=== PATIENT | female | born 1930 | race Caucasian/White ===

== ENCOUNTER 2018-04-19 05:37 | Inpatient (IN) ==
--- OUTSIDE RECORDS SUMMARY | 2018-04-19 05:43 | External Medical Summary | Clinical Summary ---
:1930 Author Organization [facility] Address [address] [place] [address] Care Team Providers Name Role Phone Self, Referral Primary Care Provider Unavailable Source Comments Some departments are not documenting in the electronic medical record. If you do not see the information that you expected, contact Release of Information in the Health Information Management department at [phone] for further assistance in locating additional records.[facility] Social History Tobacco Use Types Packs/Day Years Used Date Never Assessed Sex Assigned at Date Recorded Not on file Plan of Treatment Health Maintenance Due Date Last Done Comments PHYSICAL (COMPREHENSIVE) EXAM 1938 PERTUSSIS VACCINE 1942 TETANUS VACCINE 1948 SHINGLES RECOMBINANT VACCINE (1 of 2) 1981 OSTEOPOROSIS SCREENING 1996 PNEUMONIA (PCV13/PPSV23) VACCINES (1 of 2 - PCV13) 1996 INFLUENZA VACCINE 05/30/2018
--- OUTSIDE RECORDS SUMMARY | 2018-04-19 05:43 | External Medical Summary | Continuity of Care Document ---
:1930 External Reference #:[id number] Author Organization [facility] Allergies Active Description Code Type Severity Reaction Onset Reported/ Identified Relationship Clinical to Patient Status Yes SEE NOTES N/A N/A Yes CARBOCAINE 94048 Drug Moderate RAPID 088 Aller HEART gy BEAT Yes DEXAMETHASON 60635 Drug Moderate SWELLING; E 504 Aller DYSPNEA gy Yes HYDROCODONE 05424 Drug Moderate HIVES 983 Aller gy Yes MORPHINE 05477 Drug Moderate NAUSEA; 418 Aller VOMITING gy Yes PERCOCET 95462 Drug Moderate HIVES 148 Aller gy Yes URISPAS 11757 Drug Moderate HIVES 215 Aller gy Yes CONTRAST 38554 Drug Unknown RASH MEDIA, 316 Aller IODINE gy RELATED Yes IODINE IODIN Drug null N/A E Aller gy Yes PERCOCET PERCO Drug 21887583 N/A 5-325 MG CET Aller TABLET 5-325 gy MG TABLE T Yes ULTRAM 50 MG ULTRA Drug 20120517 N/A TABLET M 50 Aller MG gy TABLE T Yes HYDROCODONE 21780 N/A Shock 10/19/2003 Yes MANDELIC 83068 N/A Skin 10/19/2003 ACID Rashes/Hi ves Yes URIDINE 77813 N/A Skin 10/19/2003 Rashes/Hi ves Yes OXYCODONE 69421 N/A Skin 02/14/2004 HCL Rashes/Hi ves Yes DEXAMETHASON 70017 N/A TONGUE 02/15/2004 E SWELLS Yes URISPAS 98784 Drug N/A N/A 11/18/2009 Aller gy Yes MANDELIC 97083 Drug N/A N/A 11/18/2009 ACID 01728 Aller 0 gy Yes HYDROCODONE- 82583 Drug N/A N/A 11/18/2009 ACETAMINOPHE 10928 Aller N 1 gy Yes PERCOCET 34332 Drug N/A N/A 11/18/2009 53830 Aller 0 gy Yes DECADRON 04542 Drug N/A N/A 11/18/2009 2 Aller gy Yes SHRIMP NOCHK 2 INCREASED 06/17/2011 HEARTRATE Yes CARBOCAINE 36892 TACHYCARD 06/10/2012 IA Yes MORPHINE HCL 60154 3 Severe 11/16/2013 headache Yes Carbocaine Drug Unknown N/A 02/21/2015 Aller gy Yes DECADRON Drug Unknown N/A 02/21/2015 Aller gy Yes MANDELAMINE Drug Unknown N/A 02/21/2015 Aller gy Yes Percocet Drug Unknown N/A 02/21/2015 Aller gy Yes Ultram Drug Unknown N/A 02/21/2015 Aller gy Yes URISPAS Drug Unknown N/A 02/21/2015 Aller gy Yes Anesthetics mepiv AdvRe M RAPID 03/26/2015 - Amide Type acain ac HEARTBEAT e HCl Yes Corticostero dexam Aller S TONGUE 03/26/2015 ids ethas gy SWELLS, (Glucocortic one CAN'T oids) BREATHE Yes Methenamine Methe Aller I HIVES 03/26/2015 Salts namin gy e Mande late Yes Opioids - oxyco Aller I HIVES 03/26/2015 Morphine done gy Analogues HCl Yes Opioids - hydro Aller S HIVES/ 03/26/2015 Morphine codon gy SWELLING Analogues e Yes Shellfish Shell Aller Unknown N/A 03/26/2015 Containing fish gy Products Yes ULTRAM 12585 2 Skin 05/14/2016 Rashes/Hi ves Yes URISPAS 14068 Unknown 05/14/2016 Yes acetaminophe Aller M HIVES 05/12/2017 n gy Yes dexamethason Aller S TONGUE 05/12/2017 e gy SWELLS, CAN'T BREATHE Yes Flavoxate flavo Aller I HIVES 05/12/2017 xate gy (FROM URISPAS) Yes hydrocodone Aller S HIVES/ 05/12/2017 gy SWELLING Yes oxycodone Aller M HIVES 05/12/2017 gy Medications Medication Packaging Start Stop Route Dosage Sig Date Date Sublingual 11/05/19 Sublingual 30 ZOLPIDEM TARTRATE 0 16 AT BEDTIME ORAL 11/05/19 ORAL HYDROMORPHONE HCL 0 16 Tablet 11/12/19 150 mg 1 Diflucan 150 mg 4 17 (one) TABLET tablet qD (daily) ORAL Tablet 3 mg melatonin 3 mg 4 take 1 (one) tablet tablet by Oral route at bedtime 11/03/19 226-200-5 1 PreserVision Lutein 5 18 -0.8 (one) by Oral 226 mg-200 unit-5 mg-unit-m route daily mg-0.8 mg capsule g-mg Calcium 11/03/19 500 1 500 With D 500 mg 5 18 mg(1,250m (one) by Oral (1,250 mg)-400 unit g) -400 route daily tablet unit vitamin 11/03/19 1 B complex tablet 5 18 (one) by Oral route daily beta 11/03/19 25,000 1 carotene 25,000 5 18 unit (one) by Oral unit capsule route daily Vitamin Tablet 11/03/19 500 mg C 500 mg tablet 5 18 take 1 (one) Tablet by Oral route daily vitamin 11/03/19 400 unit 1 E 400 unit capsule 5 18 (one) by Oral route daily Tablet 11/03/19 2 mg HYDROmorphone 2 mg 5 18 take 1 (one) tablet Tablet by Oral route daily for 20 days Capsule 05/22/20 100 mg gabapentin 100 mg 5 15 take 1 (one) capsule Capsule by Oral route daily for 90 days 05/22/20 20 mg omeprazole 20 mg 5 15 take 1 (one) capsule,delayed by Oral route release daily for 90 days Tablet 05/22/20 5 mg lisinopril 5 mg 5 15 take 1 (one) tablet Tablet by Oral route daily for 90 days Capsule 11/03/19 300 mg gabapentin 300 mg 5 18 take 1 (one) capsule Capsule by Oral route daily for 90 days 05/22/20 125 mcg 1 Synthroid 125 mcg 5 15 (one) by Oral tablet route daily for 90 days 11/04/19 0.625 1 Premarin 0.625 5 18 mg/gram (one) by mg/gram vaginal Vaginal route cream daily Tablet 11/03/19 10 mg 1 Urecholine 10 mg 5 18 (one) Tablet tablet by Oral route at bedtime for 30 days PRESERVISION AREDS 5 take one by 2 mouth two times a day VITAMIN ORAL ORAL E 6 VITAMIN ORAL ORAL C 6 VITAMIN ORAL ORAL A 6 TYLENOL ORAL 11/15/19 ORAL 40 WITH CODEINE #3 6 16 every 6 hours PRESERVISION/LUTEIN 6 ORAL 11/19/19 ORAL 28 OMEPRAZOLE 6 16 twice daily ORAL ORAL 30 LISINOPRIL 6 daily FISH ORAL ORAL OIL 6 CALCIUM ORAL ORAL 6 BETA ORAL ORAL CAROTENE 6 ASPIRIN ORAL ORAL 30 EC 6 daily ERYTHROMYCIN 6 apply (1CM) by ophthalmic route every evening before bed to left eye. GENTEAL MILD TO MODERATE 6 Use 1drop q2h OD GENTEAL MILD 6 instill 1 drop by ophthalmic route every day SODIUM SYR 05/19/20 IVP CHLORIDE 0.9% 10ML 6 17 BID&0900,2100 FLUSH SYRINGE TAB 05/19/20 PO LEVOTHYROXINE 25 6 17 QD&0900 MCG TABLET TAB 05/19/20 PO LEVOTHYROXINE 100 6 17 QD&0900 MCG TABLET CAP 05/19/20 PO GABAPENTIN 100MG 6 17 QD&0900 CAPSULE ASPIRIN TAB 05/19/20 PO EC 81MG TABLET 6 16 QD&0900 BAG 05/19/20 IV LACTATED RINGERS 6 16 PRE-OP 1000 ML IV SOLN VL 05/19/20 IV MIDAZOLAM 2MG/2ML 6 16 PRE-OP INJ VL 05/19/20 IVP ceFAZolin 1GM VIAL 6 16 PRE-OP AMP 05/19/20 IV fentaNYL 100 6 16 PRE-OP MCG/2ML INJ VL 05/19/20 ID BUPIVACAINE W/ EPI 6 16 ONCE 0.25% INJ [10 ML] SODIUM VL 05/19/20 IVP CHLORIDE PF 0.9% 6 16 ONCE 10ML INJ BAG 05/19/20 IV LACTATED RINGERS 6 16 ONCE 1000 ML IV SOLN SODIUM EA 05/19/20 IRR CHLORIDE 0.9% 6 16 ONCE 1000ML IRRIG SOLN VL 05/19/20 IVP ceFAZolin 1GM VIAL 6 16 ONCE DOS 05/19/20 IVP SUCCINYLCHOLINE 6 16 ONCE 100MG/5ML SYRINGE [COMPOUND] SYR 05/19/20 IVP LIDOCAINE 2% 6 16 ONCE SYRINGE [100MG/5ML] VL 05/19/20 IVP PROPOFOL 6 16 ONCE 200MG/20ML INJ AMP 05/19/20 IV fentaNYL 250 6 16 ONCE MCG/5ML INJ VL 05/19/20 IVP ONDANSETRON 6 16 ONCE 4MG/2ML INJ ML 05/19/20 IV hydroMORPHONE 6 16 ONCE 2MG/1ML INJ BAG 05/19/20 IV LACTATED RINGERS 6 16 ONCE 1000 ML IV SOLN 05/19/20 ID BUPIVACAINE W/ EPI 6 16 ONCE 0.25% INJ [10 ML] SODIUM SYR 05/19/20 IVP CHLORIDE 0.9% 10ML 6 17 PRN FLUSH SYRINGE SODIUM SYR 05/19/20 IVP CHLORIDE 0.9% 5ML 6 17 PRN FLUSH SYRINGE CAP 05/19/20 PO GABAPENTIN 300MG 6 17 HS&2200 CAPSULE ASPIRIN TAB 05/19/20 PO EC 81MG TABLET 6 17 QD&1200 TAB 05/19/20 PO hydroMORPHONE 2MG 6 17 V3USCRH TABLET TAB 05/19/20 PO SIMVASTATIN 20MG 6 17 HS&2200 TABLET CAP 05/19/20 PO OMEPRAZOLE 20MG 6 17 HS&2200 CAPSULE EA 05/19/20 PO *OTC/HERBAL 6 17 ASDIR SUPPLEMENTS ML 05/19/20 IV hydroMORPHONE 6 16 ONCE 2MG/1ML INJ VL 05/19/20 IVP ONDANSETRON 6 16 POST-OP 4MG/2ML INJ ML 05/19/20 IV hydroMORPHONE 6 16 POST-OP 2MG/1ML INJ BAG 05/19/20 IV LACTATED RINGERS 6 16 ONCE 1000 ML IV SOLN BAG 05/19/20 IV LACTATED RINGERS 6 16 POST-OP 1000 ML IV SOLN TAB 05/19/20 PO LORazepam 0.5MG 6 16 ONCE TABLET TAB 05/19/20 PO LORazepam 0.5MG 6 17 Q4HPRN TABLET TAB 05/20/20 PO ACETAMINOPHEN 325MG 6 16 ONCE TABLET TAB 05/20/20 PO ACETAMINOPHEN 325MG 6 16 ONCE TABLET TAB 05/20/20 PO LORazepam 0.5MG 6 16 ONCE TABLET TAB 05/20/20 PO ACETAMINOPHEN 325MG 6 16 ONCE TABLET TAB 05/20/20 PO ACETAMINOPHEN 325MG 6 16 Q4HPRN TABLET TAB 05/20/20 PO ACETAMINOPHEN 325MG 6 17 Q4HPRN TABLET IV 1 mg/ml Dilaudid 7 Q10M TOP 50 Voltaren 7 applic/10 QID 0 g PO 2 mg Dilaudid 7 PO 10 mg Prilosec 7 PO 5 mg Prinivil 7 DAILY PO 25 mcg Synthroid 7 DAILY PO 100 mg Neurontin 7 TID Zocor PO 10 mg 7 QAM PO 99 mg Potassium 8 DAILY PO 1 each Preservision Lutein 8 Softgel Vitamin PO 1,000 E 8 unit DAILY PO 250 mg Magnesium 8 DAILY Calcium PO 1 each 600-Vit D3 200 8 DAILY Tablet PO 10 mg Prilosec 8 Low PO 81 mg Dose Aspirin EC 8 DAILY Fish PO 1 each Oil 1,200 mg Fish 8 Oil Ferrous PO 325 mg Sulfate 8 DAILY PO 125 mcg Synthroid 8 DAILY Zocor PO 10 mg 8 QAM Evista PO 60 mg 8 DAILY Tablet 11/04/19 2 mg Dilaudid 2 mg 8 18 take 1 (one) tablet Tablet by Oral route three times per day Tylenol Packet 11/04/19 500 mg Extra Strength 500 8 18 take 1 (one) mg tablet Tablet by Oral route daily as needed Bottle 11/04/19 0.12 % 1 chlorhexidine 8 18 (one) daily gluconate 0.12 % mouthwash Tablet 60 mg raloxifene 60 mg 8 take 1 (one) tablet Tablet by Oral route daily Blister 40 mg simvastatin 40 mg 8 take 1 (one) tablet Tablet by Oral route daily Tablet 0.5 mg bumetanide 0.5 mg 8 take 1 (one) tablet Tablet by Oral route daily Tablet 11/04/19 5 mg zolpidem 5 mg 8 18 take 1 (one) tablet Tablet by Oral route daily Fish Blister 11/04/19 1,000 mg 1 Oil 1,000 mg (120 8 18 (120 (one) by Oral mg-180 mg) capsule mg-180 route daily mg) Capsule 11/04/19 226 1 PreserVision Lutein 8 18 mg-200 (one) by Oral 226 mg-200 unit-5 unit -5 route daily mg-0.8 mg capsule mg-0.8 mg Tablet 11/04/19 200 mg magnesium 200 mg 8 18 take 1 (one) tablet Tablet by Oral route daily Calcium Tablet 11/04/19 500 1 500 + D 500 mg 8 18 mg(1,250m (one) by Oral (1,250 mg)-200 unit g) -200 route daily tablet unit vitamin Capsule 11/04/19 1,000 1 E (dl, acetate) 8 18 unit (one) by Oral 1,000 unit capsule route daily iron Blister 11/04/19 325 mg 1 325 mg (65 mg iron) 8 18 (65 mg (one) by Oral tablet iron) route daily beta Capsule 11/04/19 25,000 1 carotene 25,000 8 18 unit (one) by Oral unit capsule route daily Vitamin Tablet 11/04/19 500 mg C 500 mg tablet 8 18 take 1 (one) Tablet by Oral route daily Tablet 11/04/19 10 mEq 1 potassium chloride 8 18 (one) by Oral ER 10 mEq route daily tablet,extended release aspirin Tablet 11/04/19 81 mg 81 mg 8 18 take 1 (one) tablet,delayed by Oral route release daily Elmiron Capsule 12/08/19 100 mg 100 mg capsule 8 18 take 1 (one) Capsule by Oral route three times per day Tablet 12/08/19 25 mg hydrOXYzine HCl 25 8 18 take 1 (one) mg tablet Tablet by Oral route at bedtime PO 2 mg Dilaudid 8 Q6H Calcium PO 1 each 600-Vit D3 200 8 BID Tablet PO 88 mcg Synthroid 8 DAILY Drisdol PO 50,000 8 unit DAILY Problems Date Dx Attending Type Code Diagnosis Diagnosed By Coded 06/13/2013 F 723.1 06/13/2013 F 922.1 06/13/2013 F 959.4 06/13/2013 F E000.9 06/13/2013 F E815.9 06/13/2013 F E849.5 01/29/2016 W H35.32 Exudative age-related macular degeneration 01/29/2016 W H35.81 Retinal edema 01/31/2016 AMY MATTHEW M961 Postlaminectomy syndrome, not elsewhere classified 01/31/2016 AMY MATTHEW Z451 Encounter for adjustment and management of infusion pump 02/26/2016 W H35.32 Exudative age-related macular degeneration 02/26/2016 W H35.81 Retinal edema 02/28/2016 W H35.32 Exudative age-related macular degeneration 02/28/2016 W H35.81 Retinal edema 03/03/2016 AMY MATTHEW M961 Postlaminectomy syndrome, not elsewhere classified 03/03/2016 AMY MATTHEW Z451 Encounter for adjustment and management of infusion pump 03/12/2016 W H35.32 Exudative age-related macular degeneration 03/12/2016 W H35.81 Retinal edema 03/13/2016 W H35.32 Exudative age-related macular degeneration 03/13/2016 W H35.81 Retinal edema 03/16/2016 W H35.32 Exudative age-related macular degeneration 03/16/2016 W H35.81 Retinal edema 03/16/2016 W S05.00XA Corneal abrasion without FB of eye, initial encounter 03/17/2016 W H35.32 Exudative age-related macular degeneration 03/17/2016 W H35.81 Retinal edema 03/17/2016 W S05.00XA Corneal abrasion without FB of eye, initial encounter 04/03/2016 AMY MATTHEW M961 Postlaminectomy syndrome, not elsewhere classified 04/03/2016 AMY MATTHEW Z451 Encounter for adjustment and management of infusion pump 05/01/2016 W H35.32 Exudative age-related macular degeneration 05/01/2016 W H35.341 Macular cyst, hole, or pseudohole, right eye 05/01/2016 W H35.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, bilateral 05/01/2016 W H35.371 Puckering of macula, right eye 05/01/2016 W H35.81 Retinal edema 05/01/2016 W H43.393 Other vitreous opacities, bilateral 05/01/2016 W H43.813 PVD, bilateral 05/05/2016 AMY MATTHEW M961 Postlaminectomy syndrome, not elsewhere classified 05/05/2016 AMY MATTHEW Z451 Encounter for adjustment and management of infusion pump 05/11/2016 W H35.32 Exudative age-related macular degeneration 05/11/2016 W H35.341 Macular cyst, hole, or pseudohole, right eye 05/11/2016 W H35.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, bilateral 05/11/2016 W H35.371 Puckering of macula, right eye 05/11/2016 W H35.81 Retinal edema 05/11/2016 W H43.393 Other vitreous opacities, bilateral 05/11/2016 W H43.813 PVD, bilateral 05/20/2016 Kendy, T85.112A Breakdown (mechanical) Glenn Sharma of implanted electronic D neurostimulator of spinal cord electrode (lead), initial encounter 05/20/2016 JIMI CESAR DF E03.9 Hypothyroidism, unspecified 05/20/2016 AIN, JIMI DF G47.30 Sleep apnea, unspecified 05/20/2016 AIN, JIMI DF H35.30 Unspecified macular degeneration 05/20/2016 TALI, JIMI DF K21.9 Gastro-esophageal reflux disease without 05/20/2016 AIEna, JIMI DF M96.1 Postlaminectomy syndrome, not elsewhere 05/29/2016 JIMI HASSAN DF M54.17 Radiculopathy, lumbosacral region 06/01/2016 Kendy M54.5 Low back pain Collins Lrary 06/05/2016 AMY MATTHEW M961 Postlaminectomy syndrome, not elsewhere classified 06/05/2016 AMY MATTHEW Z451 Encounter for adjustment and management of infusion pump 06/22/2016 W 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, left eye, with active choroidal neovascularization 06/22/2016 W H35.3231 Exudative age-related macular degeneration, bilateral, with active choroidal neovascularization 06/22/2016 W H35.81 Retinal edema 06/26/2016 W H35.3231 Exudative age-related macular degeneration, bilateral, with active choroidal neovascularization 06/26/2016 W H35.81 Retinal edema 07/07/2016 AMY MATTHEW M961 Postlaminectomy syndrome, not elsewhere classified 07/07/2016 AMY MATTHEW Z451 Encounter for adjustment and management of infusion pump 07/21/2016 W H35.3231 Exudative age-related macular degeneration, bilateral, with active choroidal neovascularization 07/21/2016 W H52.4 Presbyopia 07/27/2016 W H35.3231 Exudative age-related macular degeneration, bilateral, with active choroidal neovascularization 07/27/2016 W H52.4 Presbyopia 08/04/2016 AMY MATTHEW M961 Postlaminectomy syndrome, not elsewhere classified 08/04/2016 AMY MATTHEW Z451 Encounter for adjustment and management of infusion pump 09/04/2016 W H35.3231 Exudative age-related macular degeneration, bilateral, with active choroidal neovascularization 09/04/2016 W H35.341 Macular cyst, hole, or pseudohole, right eye 09/04/2016 W H35.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, bilateral 09/04/2016 W H35.371 Puckering of macula, right eye 09/04/2016 W H35.81 Retinal edema 09/04/2016 W H43.393 Other vitreous opacities, bilateral 09/04/2016 W H43.813 PVD, bilateral 09/07/2016 W H35.3231 Exudative age-related macular degeneration, bilateral, with active choroidal neovascularization 09/07/2016 W H35.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, bilateral 09/07/2016 W H35.371 Puckering of macula, right eye 09/07/2016 W H35.81 Retinal edema 09/07/2016 W H43.393 Other vitreous opacities, bilateral 09/07/2016 W H43.813 PVD, bilateral 10/16/2016 W H35.3231 Exudative age-related macular degeneration, bilateral, with active choroidal neovascularization 10/16/2016 W H35.81 Retinal edema 10/20/2016 W H35.3231 Exudative age-related macular degeneration, bilateral, with active choroidal neovascularization 10/20/2016 W H35.81 Retinal edema 10/20/2016 TAD Jacob, L82.1 Other seborrheic Amish, NANCY A keratosis Lina Pope 10/20/2016 TAD Jacob, Z71.89 Other specified Curl, NANCY A counseling Lina Pope 10/20/2016 TAD Jacob, 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, 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 11/14/2016 Grundmeyer, M25.551 PAIN IN RIGHT HIP Grundmeyer, Collins Collins 11/14/2016 Grundmeyer, M25.552 PAIN IN LEFT HIP Grundmeyer, Collins Collins 11/14/2016 Grundmeyer, M54.5 LOW BACK PAIN Grundmeyer, Collins Collins 12/03/2016 F M18.12 Unilateral primary osteoarthritis of first carpometacarpal joint, left hand 12/03/2016 F M79.642 Pain in left hand 12/07/2016 W H35.3231 Exudative age-related macular degeneration, bilateral, with active choroidal neovascularization 12/07/2016 W H35.81 Retinal edema 12/08/2016 F M79.674 Pain in right toe(s) 12/17/2016 W H35.3231 Exudative age-related macular degeneration, bilateral, with active choroidal neovascularization 12/17/2016 W H35.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, bilateral 12/17/2016 W H35.371 Puckering of macula, right eye 12/17/2016 W H35.81 Retinal edema 12/17/2016 W H43.393 Other vitreous opacities, bilateral 12/17/2016 W H43.813 PVD, bilateral 12/25/2016 W H35.3231 Exudative age-related macular degeneration, bilateral, with active choroidal neovascularization 12/25/2016 W H35.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, bilateral 12/25/2016 W H35.371 Puckering of macula, right eye 12/25/2016 W H35.81 Retinal edema 12/25/2016 W H43.393 Other vitreous opacities, bilateral 12/25/2016 W H43.813 PVD, bilateral 01/20/2017 JOSE R NASH R30.0 Dysuria SUSANA HAMMER, AMENA F 01/20/2017 JOSE R NASH R35.0 Frequency of SUSANA HAMMER, micturition AMENA F 01/20/2017 JOSE R NASH R39.11 Hesitancy of SUSANA HAMMER, micturition AMENA F 02/24/2017 W H35.3231 Exudative age-related macular degeneration, bilateral, with active choroidal neovascularization 02/24/2017 W H35.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, bilateral 02/24/2017 W H35.371 Puckering of macula, right eye 02/24/2017 W H35.81 Retinal edema 02/24/2017 W H43.393 Other vitreous opacities, bilateral 02/24/2017 W H43.813 PVD, bilateral 02/25/2017 W H35.3231 Exudative age-related macular degeneration, bilateral, with active choroidal neovascularization 02/25/2017 W H35.81 Retinal edema 03/03/2017 TAD Jacob, L08.9 Local infection of the Curl, NANCY Kwok skin and subcutaneous Lina M tissue, unspecified 03/04/2017 W H35.3231 Exudative age-related macular degeneration, bilateral, with active choroidal neovascularization 03/04/2017 W H35.81 Retinal edema 03/25/2017 W H35.3231 Exudative age-related macular degeneration, bilateral, with active choroidal neovascularization 03/25/2017 W H35.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, bilateral 03/25/2017 W H35.371 Puckering of macula, right eye 03/25/2017 W H35.81 Retinal edema 03/25/2017 W H43.393 Other vitreous opacities, bilateral 03/25/2017 W H43.813 PVD, bilateral 03/26/2017 TAD Jacob, L08.9 Local infection of the Curl, NANCY A skin and subcutaneous Lina M tissue, unspecified 04/05/2017 TAD Jacob, A 438.89 OTH LE CV DISEASE CHRISTOPHER A 04/27/2017 F 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, right ankle and foot 04/27/2017 F M79.674 Pain in right toe(s) 05/20/2017 TAD Jacob, A 438.89 OTH LE CV DISEASE CHRISTOPHER A 05/20/2017 TAD Jacob, A 438.89 OTH LE CV DISEASE CHRISTOPHER A 05/24/2017 W H35.3231 Exudative age-related macular degeneration, bilateral, with active choroidal neovascularization 05/24/2017 W H35.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, bilateral 05/24/2017 W H35.371 Puckering of macula, right eye 05/24/2017 W H35.81 Retinal edema 05/24/2017 W H43.393 Other vitreous opacities, bilateral 05/24/2017 W H43.813 PVD, bilateral 05/25/2017 W H35.3231 Exudative age-related macular degeneration, bilateral, with active choroidal neovascularization 05/25/2017 W H35.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, bilateral 05/25/2017 W H35.371 Puckering of macula, right eye 05/25/2017 W H35.81 Retinal edema 05/25/2017 W H43.393 Other vitreous opacities, bilateral 05/25/2017 W H43.813 PVD, bilateral 06/25/2017 W H35.3231 Exudative age-related macular degeneration, bilateral, with active choroidal neovascularization 06/25/2017 W H35.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, bilateral 06/25/2017 W H35.371 Puckering of macula, right eye 06/25/2017 W H35.81 Retinal edema 06/25/2017 W H43.393 Other vitreous opacities, bilateral 06/25/2017 W H43.813 PVD, bilateral 07/27/2017 W H35.3231 Exudative age-related macular degeneration, bilateral, with active choroidal neovascularization 07/27/2017 W H35.3231 Exudative age-related macular degeneration, bilateral, with active choroidal neovascularization 07/27/2017 W H35.3231 Exudative age-related macular degeneration, bilateral, with active choroidal neovascularization 07/27/2017 W H52.4 Presbyopia 07/27/2017 W H35.3231 Exudative age-related macular degeneration, bilateral, with active choroidal neovascularization 07/27/2017 W H52.4 Presbyopia 07/28/2017 W H35.3231 Exudative age-related macular degeneration, bilateral, with active choroidal neovascularization 07/28/2017 W H52.4 Presbyopia 07/28/2017 W H35.3231 Exudative age-related macular degeneration, bilateral, with active choroidal neovascularization 07/28/2017 W H52.4 Presbyopia 08/12/2017 SAHRA HAMMER, E11.65 Type 2 diabetes COLLEEN BOCANEGRA MD mellitus with COLLEEN A hyperglycemia 08/12/2017 SAHRA HAMMER, Z71.3 Dietary counseling and COLLEEN BOCANEGRA MD surveillance COLLEEN A 08/27/2017 W H35.3231 Exudative age-related macular degeneration, bilateral, with active choroidal neovascularization 08/27/2017 W H35.3231 Exudative age-related macular degeneration, bilateral, with active choroidal neovascularization 08/27/2017 W H35.81 Retinal edema 09/02/2017 SAHRA HAMMER, E11.65 Type 2 diabetes COLLEEN BOCANEGRA MD mellitus with COLLEEN A hyperglycemia 09/02/2017 SAHRA HAMMER, Z71.3 Dietary counseling and COLLEEN BOCANEGRA MD surveillance COLLEEN A 09/06/2017 W H35.3231 Exudative age-related macular degeneration, bilateral, with active choroidal neovascularization 09/06/2017 W H35.81 Retinal edema 09/06/2017 W H35.3231 Exudative age-related macular degeneration, bilateral, with active choroidal neovascularization 09/06/2017 W H35.81 Retinal edema 09/16/2017 SAHRA HAMMER, E11.65 Type 2 diabetes SAHRA HAMMER, COLLEEN A mellitus with COLLEEN A hyperglycemia 09/16/2017 SAHRA HAMMER, Z71.3 Dietary counseling and SAHRA HAMMER, COLLEEN A surveillance COLLEEN A 09/23/2017 SAHRA HAMMER, E11.65 Type 2 diabetes SAHRA HAMMER, COLLEEN A mellitus with COLLEEN A hyperglycemia 09/23/2017 SAHRA HAMMER, Z71.3 Dietary counseling and SAHRA HAMMER, COLLEEN A surveillance COLLEEN A 11/08/2017 NABBOUT, JOSE R N30.10 Interstitial cystitis NABBOUT, (chronic) without JOSE R hematuria 11/08/2017 NABBOUT, JOSE R R30.0 Dysuria NABBOUT, JOSE R 11/08/2017 NABBOUT, JOSE R R35.0 Frequency of NABBOUT, micturition JOSE R 11/25/2017 W H35.3231 Exudative age-related macular degeneration, bilateral, with active choroidal neovascularization 11/25/2017 W H35.3231 Exudative age-related macular degeneration, bilateral, with active choroidal neovascularization 11/25/2017 W H35.81 Retinal edema 11/25/2017 W H35.3231 Exudative age-related macular degeneration, bilateral, with active choroidal neovascularization 11/25/2017 W H35.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, bilateral 11/25/2017 W H35.81 Retinal edema 11/25/2017 W H35.3231 Exudative age-related macular degeneration, bilateral, with active choroidal neovascularization 11/25/2017 W H35.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, bilateral 11/25/2017 W H35.371 Puckering of macula, right eye 11/25/2017 W H35.81 Retinal edema 11/25/2017 W H35.3231 Exudative age-related macular degeneration, bilateral, with active choroidal neovascularization 11/25/2017 W H35.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, bilateral 11/25/2017 W H35.371 Puckering of macula, right eye 11/25/2017 W H35.81 Retinal edema 11/25/2017 W H43.813 PVD, bilateral 11/30/2017 W H35.3231 Exudative age-related macular degeneration, bilateral, with active choroidal neovascularization 11/30/2017 W H35.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, bilateral 11/30/2017 W H35.371 Puckering of macula, right eye 11/30/2017 W H35.81 Retinal edema 11/30/2017 W H43.813 PVD, bilateral 11/30/2017 W H35.3231 Exudative age-related macular degeneration, bilateral, with active choroidal neovascularization 11/30/2017 W H35.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, bilateral 11/30/2017 W H35.371 Puckering of macula, right eye 11/30/2017 W H35.81 Retinal edema 11/30/2017 W H43.813 PVD, bilateral 11/30/2017 W H35.3231 Exudative age-related macular degeneration, bilateral, with active choroidal neovascularization 11/30/2017 W H35.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, bilateral 11/30/2017 W H35.371 Puckering of macula, right eye 11/30/2017 W H35.81 Retinal edema 11/30/2017 W H43.813 PVD, bilateral 11/30/2017 W H35.3231 Exudative age-related macular degeneration, bilateral, with active choroidal neovascularization 11/30/2017 W H35.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, bilateral 11/30/2017 W H35.371 Puckering of macula, right eye 11/30/2017 W H35.81 Retinal edema 11/30/2017 W H43.813 PVD, bilateral 11/30/2017 W H35.3231 Exudative age-related macular degeneration, bilateral, with active choroidal neovascularization 11/30/2017 W H35.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, bilateral 11/30/2017 W H35.371 Puckering of macula, right eye 11/30/2017 W H35.81 Retinal edema 11/30/2017 W H43.813 PVD, bilateral 11/30/2017 W H35.3231 Exudative age-related macular degeneration, bilateral, with active choroidal neovascularization 11/30/2017 W H35.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, bilateral 11/30/2017 W H35.371 Puckering of macula, right eye 11/30/2017 W H35.81 Retinal edema 11/30/2017 W H43.813 PVD, bilateral 12/03/2017 NABBOUT, JOSE R N30.10 Interstitial cystitis NABBOUT, (chronic) without JOSE R hematuria 12/03/2017 NABBOUT, JOSE R R35.0 Frequency of NABBOUT, micturition JOSE R 12/16/2017 W H35.3231 Exudative age-related macular degeneration, bilateral, with active choroidal neovascularization 12/16/2017 W H35.3231 Exudative age-related macular degeneration, bilateral, with active choroidal neovascularization 12/16/2017 W H35.81 Retinal edema 12/16/2017 W H35.3231 Exudative age-related macular degeneration, bilateral, with active choroidal neovascularization 12/16/2017 W H35.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, bilateral 12/16/2017 W H35.81 Retinal edema 12/16/2017 W H35.3231 Exudative age-related macular degeneration, bilateral, with active choroidal neovascularization 12/16/2017 W H35.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, bilateral 12/16/2017 W H35.371 Puckering of macula, right eye 12/16/2017 W H35.81 Retinal edema 12/16/2017 W H35.3231 Exudative age-related macular degeneration, bilateral, with active choroidal neovascularization 12/16/2017 W H35.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, bilateral 12/16/2017 W H35.371 Puckering of macula, right eye 12/16/2017 W H35.81 Retinal edema 12/16/2017 W H43.813 PVD, bilateral 12/17/2017 ATD Jacob, L70.8 Other acne Curl, NANCY Dupree 12/17/2017 TAD Jacob, L72.0 Epidermal cyst Amish, NANCY Dupree 12/17/2017 TAD Jacob, Z85.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, CHRISTADEOLA A other malignant Lina PopeGetachew neoplasm of skin 12/23/2017 W H35.3231 Exudative age-related macular degeneration, bilateral, with active choroidal neovascularization 12/23/2017 W H35.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, bilateral 12/23/2017 W H35.371 Puckering of macula, right eye 12/23/2017 W H35.81 Retinal edema 12/23/2017 W H43.813 PVD, bilateral 12/23/2017 W H35.3231 Exudative age-related macular degeneration, bilateral, with active choroidal neovascularization 12/23/2017 W H35.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, bilateral 12/23/2017 W H35.371 Puckering of macula, right eye 12/23/2017 W H35.81 Retinal edema 12/23/2017 W H43.813 PVD, bilateral 03/17/2018 W H35.3231 Exudative age-related macular degeneration, bilateral, with active choroidal neovascularization 03/17/2018 W H35.3231 Exudative age-related macular degeneration, bilateral, with active choroidal neovascularization 03/17/2018 W H35.81 Retinal edema 03/21/2018 W H35.3231 Exudative age-related macular degeneration, bilateral, with active choroidal neovascularization 03/21/2018 W H35.3231 Exudative age-related macular degeneration, bilateral, with active choroidal neovascularization Procedures Code Description [place] [address] INJECTION EYE 01/22/2016 DRUG 21504 Gdx Oct Post 02/26/2016 Seg Ret 09248 INJECTION EYE 03/12/2016 DRUG 23719 Gdx Oct Post 03/12/2016 Seg Ret J7999 Compounded Drug 03/12/2016 NOC 57008 03/16/2016 OFFICE/OUTPATIENT VISIT, EST 60854 EYE EXAM T 05/01/2016 TREATMENT Removal of JIMI CESAR 05/19/2016 [id number] Neurostimulator Lead from Spi Removal of JIMI CESAR 05/19/2016 [id number] Stimulator Generator from Cornelio 21214 Removal of Glenn Sharma 05/20/2016 spinal neurostimulator electrode plate/paddle(s) [place] [address] Post Operative Collins Larry 06/01/2016 Visit 80145 Removal of [place], Glenn D 06/12/2016 spinal neurostimulator electrode plate/paddle(s) [place] [address] INJECTION EYE 06/22/2016 DRUG 67674 Gdx Oct Post 06/22/2016 Seg Ret 05801 EYE EXAM T 07/21/2016 TREATMENT 09957 REFRACTION 07/21/2016 12810 EYE EXAM T 09/04/2016 TREATMENT 36140 Gdx Oct Post 09/04/2016 Seg Ret 89494 INJECTION EYE 10/16/2016 DRUG 47015 Gdx Oct Post 10/16/2016 Seg Ret C9257 Avastin/ 10/16/2016 Bevacizumab J7999 Compounded Drug 10/16/2016 NOC 79222 Level III Lina Wellington 10/20/2016 established patient office visit 90417 Office Visit Collins Larry 11/14/2016 Expanded 53815 1 Finger 3V Emiliahillary Renzo 12/03/2016 Thumb + [facility] 89662 OFFICE VISIT Collins Larry 12/10/2016 EXPANDED 42627 INJECTION EYE 12/17/2016 DRUG 16628 Gdx Oct Post 12/17/2016 Seg Ret 35271 SPECIAL EYE 12/17/2016 EXAM, INITIAL J7999 Compounded Drug 12/17/2016 NOC 00479 OFFICE OR OTHER AMENA MEZA MD 01/20/2017 OUTPATIENT VISIT FOR THE EVALUATION AND MANAGEMENT OF ANESTABLISHED [place] R 78707 Level III Lina Wellington 01/27/2017 established patient office visit 47143 OFFICE OR OTHER AMENA MEZA MD 02/16/2017 OUTPATIENT VISIT FOR THE EVALUATION AND MANAGEMENT OF ANESTABLISHED PATIENT, WHICH R 11634 Gdx Oct Post 02/25/2017 Seg Ret 95123 Level IV Lina Wellington 03/03/2017 established patient office visit 09479 Level II Lina Wellington 03/26/2017 established patient office visit 51136 Level IV Lina Wellington 03/26/2017 established patient office visit [facility] No Show feeTERESA KAREN L 04/05/2017 clinic 38849 Level II Lina Wellington 04/22/2017 established patient office visit 18434 Foot 3V WB ReidIsabela angel 04/27/2017 AP/Obl/Lat [facility] No Show fee, FARZANEH MOORE 05/20/2017 clinic 16485 INJECTION EYE 05/24/2017 DRUG 70850 EYE EXAM 05/24/2017 ESTABLISHED PAT 29186 Gdx Oct Post 05/24/2017 Seg Ret 31663 SPECIAL EYE 05/24/2017 EXAM, SUBSEQUENT J7999 Compounded Drug 05/24/2017 NOC 94624 EYE EXAM 07/27/2017 ESTABLISHED PAT 97794 Gdx Oct Post 08/27/2017 Seg Ret 68588 MEASUREMENT OF NABBOUT, [facility] 11/08/2017 POST-VOIDING RESIDUAL URINE AND/OR BLADDER CAPACITY BYULTRASOUND, NON-IMAGING 42780 OFFICE OR OTHER NABBOUT, [facility] 11/08/2017 OUTPATIENT VISIT FOR THE EVALUATION AND MANAGEMENT OF ANESTABLISHED PATIENT, WHICH R 88743 EYE EXAM 11/25/2017 ESTABLISHED PAT 46763 Gdx Oct Post 11/25/2017 Seg Ret 92258 MEASUREMENT OF NABBOUT, [facility] 12/03/2017 POST-VOIDING RESIDUAL URINE AND/OR BLADDER CAPACITY BYULTRASOUND, NON-IMAGING 89611 OFFICE OR OTHER NABBOUT, [facility] 12/03/2017 OUTPATIENT VISIT FOR THE EVALUATION AND MANAGEMENT OF ANESTABLISHED PATIENT, WHICH R 75464 OFFICE OR OTHER NABBOUT, [facility] 12/03/2017 OUTPATIENT VISIT FOR THE EVALUATION AND MANAGEMENT OF ANESTABLISHED PATIENT, WHICH R 39740 EYE EXAM 12/16/2017 ESTABLISHED PAT 03813 Level III Lina Wellington 12/17/2017 established patient office visit 99037 OFFICE OR OTHER NABBOUT, [facility] 01/07/2018 OUTPATIENT VISIT FOR THE EVALUATION AND MANAGEMENT OF ANESTABLISHED PATIENT, WHICH R 27260 Level III Lina Wellington 01/18/2018 established patient office visit 80185 INJECTION EYE 03/17/2018 DRUG 03768 Gdx Oct Post 03/17/2018 Seg Ret J7999 Compounded Drug 03/17/2018 NOC Results Test Result Range L750.2985 - 10/20/17 13:37 Cortisol AM, Serum - AMS 12 ug/dL 3-20 L750.7925 - 10/20/17 13:37 PTH Parathyroid Hormone Intact 44.1 pg/mL 6.6-88.9 L749.2000 - 01/18/18 10:20 NA - Sodium - AMS 140 mEq/L 135-144 Potassium - AMS 4.6 mEq/L 3.5-5.2 Chloride- AMS 105 mEq/L 99-111 CO2 - Carbon Dioxide-AMS 31 mEq/L 22-31 Anion Gap - AMS 4 mEq/L 3-20 BUN - Blood Urea Nitrogen -AMS 22 mg/dL 10-20 Creatinine - AMS 1.02 mg/dL 0.57-1.11 Glomerular Filtration Rate-AMS 51 mL/min >60 Glucose - AMS 110 mg/dL 70-99 Calcium - AMS 9.2 mg/dL 8.4-10.2 Bilirubin,Total - AMS 0.9 mg/dL 0.2-1.2 Alkaline Phosphatase - AMS 78 U/L 40-150 AST - Aspartate Amino Transfer 19 U/L 5-34 ALT - AMS 20 U/L 0-55 TP - Total Protein - AMS 5.8 g/dL 6.0-7.6 Albumin Level - AMS 3.8 g/dL 3.4-4.8 Globulin - AMS 2.0 g/dL 1.8-4.0 Encounters ACCT Visit Discharge Status Pt. Provider Facility Loc./Unit Complaint No. Date/Time Type 73804 05/29/2016 05/29/2016 DIS Matias HASSAN [facility] Radiculopat 12:04:00 12:04:00 ent [facility] [address] 05/19/2016 05/20/2016 DIS JIMI [place] INPT NO 10:21:00 10:57:00 ent [facility] RADICULOPAT HY, DORSALGIA [id number] 03/07/2018 03/07/2018 DIS Matias ZENG MD, [facility] Rt Hip Pain 17266 11:17:00 13:41:00 ent [facility] [id number] 02/14/2018 02/14/2018 ALFONSO ChanT N18.3 92303 10:00:00 00:00:00 ent Shahana Richey APRN [id number] 01/11/2018 01/31/2018 SEVERIANO BOCANEGRA MD, MNT E11.9 73538 14:31:00 00:00:00 ent COLLEEN Kwok [id number] 01/18/2018 01/18/2018 DIS Matias HATCH MD, Diabetes & OSTEOPOROS 30414 09:48:00 10:34:00 ent ANA MARÍA Pope Endocrinolog y [id number] 12/31/2017 12/31/2017 DIS Matias Ventura MD M16.11 12464 12:58:00 12:59:00 ent [facility] primary osteoarthri tis, right hi [id number] 11/29/2017 11/29/2017 DIS Matias Ventura MD Ortho Rt Hip 85796 14:17:00 23:59:00 ent [facility] Injection [facility] [id number] 08/12/2017 11/04/2017 DIS Outbraulio BOCANEGRA MD, DMEDU DM EDU 53336 15:15:00 00:00:00 ent COLLEEN Kwok E11.9 [id number] 10/20/2017 10/20/2017 CLS Matias HATCH MD, Diabetes & Osteoporosi 10066 08:48:00 23:59:59 ent ANA MARÍA Pope Endocrinolog s y [id number] 08/19/2017 08/19/2017 DIS Matias Rodas Z78.0 31774 13:06:00 13:07:00 [facility] [id number] 05/12/2017 05/12/2017 CLS Matias Ventura MD Ortho Rt Knee 09239 12:26:00 23:59:59 ent [facility] pain Medicine [id number] 06/25/2016 06/25/2016 CLS Matias Cook YORDY 54820 10:55:00 23:59:59 [facility] [id number] 04/19/2018 ROSALINA ZENG MD, SHAE Primary 89416 10:55:00 t [facility] arthritis right hip [id number] 04/05/2018 Documen 44658 11:30:00 t Registr ation [id number] 07/03/2016 Documen 40760 18:38:00 t Registr ation [id number] 09/25/2016 09/25/2016 CLS Outpati 10096 15:22:16 23:59:59 ent [id number] 01/06/2018 01/06/2018 CLS Outpati TAD 86220 11:22:01 23:59:59 NANCY levin M.D. [id number] 08/04/2016 08/04/2016 DIS OutMaxx Larson 001 3 01:07:00 12:11:00 ent [facility]Y [facility] [id number] 07/07/2016 07/07/2016 DIS OutMaxx Larson 8 01:37:00 12:37:00 ent [facility] [id number] 06/05/2016 06/05/2016 DIS Maxx Blanco 001 0 01:12:00 10:07:00 ent [facility] [id number] 05/05/2016 05/05/2016 DIS OutMaxx Larson 0 00:38:00 12:23:00 ent [facility] [id number] 04/03/2016 04/03/2016 DIS Maxx Blanco 4 00:10:00 10:19:00 ent [facility] [id number] 03/03/2016 03/03/2016 DIS Maxx Blanco 4 00:47:00 12:31:00 ent AMY [facility] [id number] 01/31/2016 01/31/2016 DIS Maxx Blanco 0 00:31:00 09:57:00 ent AMY [facility] [id number] 12/31/2015 Documen 4 01:40:00 t Registr ation [id number] 11/28/2015 11/28/2015 DIS Outpati 08:11:31 08:11:32 ent [id number] 12/31/2017 12/31/2017 CLS Outpati CHARITY, 1 13:32:17 23:59:59 ent JOSE R [id number] 04/27/2017 Documen 83 00:00:00 t Registr ation [id number]- 12/03/2016 Documen 5983 00:00:00 t Registr ation [id number] 04/08/2018 04/08/2018 CLS Outpati Kendy, 12:44:10 23:59:59 ent Collins [id number] 03/17/2018 Documen 14:40:00 t Registr ation [id number] 12/16/2017 Documen 13:25:00 t Registr ation [id number] 11/25/2017 Documen 14:25:00 t Registr ation [id number] 08/27/2017 Documen 13:00:00 t Registr ation [id number] 07/27/2017 Documen 11:47:22 t Registr ation [id number] 07/27/2017 Documen 11:00:00 t Registr ation [id number] 05/24/2017 Documen 08:55:00 t Registr ation [id number] 02/25/2017 Documen 13:05:00 t Registr ation [id number] 12/17/2016 Documen 14:20:00 t Registr ation [id number] 10/16/2016 Documen 13:00:00 t Registr ation [id number] 09/04/2016 Documen 10:20:00 t Registr ation [id number] 07/21/2016 Documen 10:40:00 t Registr ation [id number] 06/22/2016 Documen 09:30:00 t Registr ation [id number] 05/01/2016 Documen 10:00:00 t Registr ation [id number] 03/16/2016 Documen 13:20:00 t Registr ation [id number] 03/12/2016 Documen 12:10:00 t Registr ation [id number] 02/26/2016 Documen 14:55:00 t Registr ation [id number] 01/22/2016 Documen 15:35:00 t Registr ation [id number] 06/06/2013 Documen [id number] 20:50:00 t Registr ation
[2018-04-19 05:53] VITALS: BMI 29.5
[2018-04-19] MEDS ORDERED: ONDANSETRON 4 MG/2 ML INJECTION IVP ONE (06:00)
[2018-04-19] MEDS ORDERED: FAMOTIDINE PB 20 MG/50 ML BAG IV ONE (06:00)
[2018-04-19] MEDS ORDERED: LIDOCAINE 1% (10mg/ml) 2mL INJ PF SDV ID ONE (06:00)
[2018-04-19] MEDS ORDERED: METOCLOPRAMIDE 10mg/2ml INJECTION IVP ONE (06:00)
[2018-04-19] MEDS ORDERED: TRANEXAMIC ACID 1,000 MG in NS 100 ML IV ONE ×2 (06:00→07:00)
[2018-04-19] MEDS: LR 1,000 ML IV SCH ×2 (06:30→08:30)
[2018-04-19] MEDS: NOZIN NASAL SWAB NAS SCH ×5 (06:36→22:01)
[2018-04-19] MEDS ORDERED: CEFAZOLIN 1 G INJECTION IVP ONE (06:40)
--- NOTE | 2018-04-19 06:48 | Anesthesia Preoperative Report ---
Anesthesia Preoperative Record - Date and Time Date: 04/19/18 Preoperative Diagnosis: Primary arthritis right hip Proposed Procedure: Right Total hip NPO Since Date: 04/19/18 NPO Since Time: 00:00 Allergies/Adverse Reactions: Allergies Allergy/AdvReac Type Severity Reaction Status Date / Time dexamethasone Allergy Severe TONGUE Verified 03/07/18 11:25 SWELLS, CAN'T BREATHE hydrocodone Allergy Severe HIVES/ Verified 03/07/18 11:25 SWELLING flavoxate Allergy Intermediate HIVES Verified 03/07/18 11:25 (FROM URISPAS) acetaminophen Allergy Mild HIVES Verified 03/07/18 11:25 oxycodone Allergy Mild HIVES Verified 03/07/18 11:25 tramadol [From Ultram] Allergy Unknown Hives Verified 04/08/18 09:41 dexamethasone sod phosphate Allergy Severe TONGUE Uncoded 03/07/18 11:25 SWELLS, CAN'T BREATHE Methenamine Mandelate Allergy Intermediate HIVES Uncoded 03/07/18 11:25 oxycodone HCl Allergy Intermediate HIVES Uncoded 03/07/18 11:25 Shellfish Allergy Unknown Uncoded 03/07/18 11:25 mepivacaine HCl AdvReac Mild RAPID Uncoded 03/07/18 11:25 HEARTBEAT - Vital Signs Vital Signs: Temperature 97.7 F 04/19/18 05:50 Pulse Rate 58 L 04/19/18 06:29 Respiratory Rate 16 04/19/18 05:50 Blood Pressure 140/61 H 04/19/18 05:50 Pulse Oximetry 95 04/19/18 05:50 Height and Weight: Height 1.47 m Weight 64.1 kg Body Mass Index 29.5 - Medications Inpatient Medications: Current Medications Cefazolin Sodium (Kefzol 1 Gm Vial) 1 g IVP PREOP ONE Stop: 04/19/18 06:41 Lactated Ringer's (Lactated Ringers) 1,000 mls @ 50 mls/hr IV .Q20H PETERSON Last Admin: 04/19/18 06:30 Dose: 50 mls/hr Epinephrine HCl 0.25 mg/Bupivacaine HCl 30 ml/Ketorolac Tromethamine 60 mg/ Sodium Chloride 62.25 mls @ 1 mls/hr OPSITE INTRAOP ONE; Protocol Stop: 04/21/18 22:14 Tranexamic Acid 1,000 mg/ (Sodium Chloride) 110 mls @ 660 mls/hr IV INTRAOP ONE Stop: 04/19/18 07:09 Isopropyl Alcohol (Nozin Nasal Swab) 1 each JUNITO Q1M PETERSON Stop: 04/19/18 15:48 Last Admin: 04/19/18 06:45 Dose: 1 each Sodium Chloride (Iv Flush) 10 - 80 ml IV PRN PRN PRN Reason: Flushing Home Medications: Home Medications Medication Instructions Recorded Confirmed Type Neurontin (gabapentin) 100 mg 100 mg PO TID 05/12/17 04/19/18 History capsule lisinopril 5 mg tablet 5 mg PO WS tab 05/12/17 04/19/18 History Prilosec (Omeprazole) 10 mg 20 mg PO HS cap 10/20/17 04/19/18 History capsule,delayed release aspirin 81 mg tablet,delayed 81 mg PO DAILY 10/20/17 04/18/18 History release potassium 99 mg tablet 99 mg PO WS 10/20/17 04/19/18 History raloxifene 60 mg tablet 60 mg PO DAILY #90 tab 10/20/17 04/19/18 Rx hydromorphone 2 mg tablet 2 mg PO Q6H PRN 01/18/18 04/19/18 History Calcium Carb/Vitamin D3/Vit K1 1 each PO TID 04/08/18 04/19/18 History [Citracal Soft Chew] Cinnamon Bark [Cinnamon] 2,000 mg PO 04/08/18 04/19/18 History Docusate Sodium [Stool Softener] 100 mg PO HS 04/08/18 04/19/18 History Lactobacillus Acidophilus 1 each PO WB 04/08/18 04/19/18 History [Acidophilus] Levothyroxine Tab [Synthroid] 88 mcg PO HS 04/08/18 04/19/18 History Magnesium Oxide [Magnesium] 1 tab PO HS 04/08/18 04/19/18 History Simvastatin [Zocor] 40 mg PO HS 04/08/18 04/19/18 History Vit C/E/Zn/Coppr/Lutein/Zeaxan 1 each PO BID 04/08/18 04/19/18 History [Preservision Areds 2 Softgel] Vitamin B Complex Vit C No.4 150 mg PO WS 04/08/18 04/19/18 History [Super B Complex] Zolpidem Tartrate 5 mg PO HS 04/08/18 04/19/18 History - Medical History Respiratory: Reports: Pneumonia, Sleep Apnea (uses CPAP) Cardiovascular: Reports: Hypertension, High Cholesterol Gastrointestional: Reports: Gastroesophageal Reflux Disease Neuro/Musculoskeletal: Reports: Back Problems, Other (osteoporosis) Renal/Endocrine: Reports: Diabetes Mellitus Type 2, Thyroid Disease Other History: Reports: Anesthesia Reactions (difficult intubation-use pediatric scope; requests spinal if poss), Cancer (skin CA excisions) - Surgical History Neurological Surgeries: Reports: Other (cervical fusion x3; lumbar fusion x5; kyphoplasty; has hardware T12-S1) HEENT Surgeries: Reports: Eye Surgery (charanjit cat ext with IOL), Tonsillectomy Cardiac Surgeries/Treatments: Reports: Cardiac Catheterization Respiratory Surgery/Treatments: Reports: CPAP Use GI Surgery/Treatments: Reports: Appendectomy, Cholecystectomy (open tiki), Colonoscopy Surgery/Treatment: REPORT: Other (cystos) Musculoskeletal Surgery/Tx: Reports: Other (Rt bunionectomy; pain pump, pain stimulator) Reproductive Surgery/Treatment: Reports: Hysterectomy Anesthesia Reactions: None Hx Family Anesthesia Reaction: No History of Motion Sickness: No - Social History Smoking Status: Former smoker Hx Chewing Tobacco Use: No Second Hand Exposure: No Substance Use Type: does not use Alcohol Intake Frequency: does not drink - Pertinent Findings Laboratory: CBC and BMP 04/19/18 06:07 04/19/18 06:07 BMP 04/19/18 06:07 Sodium 139 Potassium 4.6 Chloride 99 Carbon Dioxide 30 BUN 26.0 H Creatinine 0.8 Glucose 101 Calcium 9.4 EKG: Sinus Bradycardia - Physical Exam Respiratory Exam: Present: lungs clear Cardiovascular Exam: Present: regular rate and rhythm - Airway Assessment Mallampati Score: II TMD: 3 Fingerbreadths Neck Extension: poor Overall Assessment: may be difficult mask vent, may be difficult intubation - ASA ASA Score: 3 - Plan Anesthesia: Neuroaxial Regional/Trunk Block: Spinal - Discussion Discussion: Discussed risks/options/alternatives of anesthesia and questions answered. Patient consents. Nursing pain assessment noted. Present for Discussion: spouse Attestation Statement: Prior to the delivery of any anesthetic medication, I examined the patient, developed the plan, obtained the patient's consent and discussed the risk and benefits of the procedure with the patient/guardian. - Additional Information Seen by Anesthesia: Yes
[2018-04-19] MEDS ORDERED: MIDAZOLAM 2mg/2ml INJECTION ONE (07:06)
[2018-04-19] MEDS ORDERED: PROPOFOL 500 MG/50 ML VIAL ONE (07:07)
[2018-04-19] MEDS ORDERED: BUPIVACAINE 0.75%/DEXTROSE 8.5% SPINAL 2 ML AMPULE IJ ONE (07:07)
[2018-04-19] MEDS ORDERED: LIDOCAINE 2% (100mg/5mL) 5ml PF SDV ONE (07:07)
[2018-04-19] MEDS ORDERED: VANCOMYCIN 1,000 MG INJECTION ONE (07:19)
[2018-04-19] MEDS ORDERED: EPINEPHrine PF 0.25 MG, BUPIVACAINE 0.25% PF 30 ML, KETOROLAC INJ 60 MG in NS 30 ML OPSITE ONE (08:00)
[2018-04-19] MEDS ORDERED: VANCOMYCIN 1,000 MG INJECTION IAR ONE (08:21)
[2018-04-19] MEDS ORDERED: PROPOFOL 20 ML ONE (08:23)
[2018-04-19] MEDS ORDERED: EPHEDRINE 50mg/ml INJECTION ONE (08:32)
--- NOTE | 2018-04-19 09:02 | Operative Note ---
- Procedure Preoperative Diagnosis: Right hip primary degenerative joint disease Postoperative Diagnosis: Same as preoperative diagnosis. Surgeon: Blu Coy MD Central Service Technician: Jannie Stevens Complications: None. Anesthesia: Spinal. Estimated Blood Loss: See Anesthesia Record. Fluids: Please see Anesthesia Record. Description of Procedure: Mrs. Patel and her right hip were identified and marked in the preoperative holding area. She was brought back to the operating suite and spinal anesthetic was administered. She was then placed in a lateral decubitus position with her right hip up. The right lower extremity was prepped and draped in my normal sterile fashion. Timeout was performed. The [employer] robotic arm was used to assist with the surgery. She had small anatomy. A pelvic array was placed into the iliac crest through three small incisions. A direct superior approach was utilized. An approximately 11 cm incision was made in the skin and dissection carried down to the muscle fascia which was then split in line with skin incision. The short external rotators were identified and tagged and detached. A capsulotomy was performed and the hip dislocated. A femoral neck osteotomy was performed at the pre-templated level measuring down from the femoral head 47mm. The head was removed and acetabulum exposed. Labrum was removed. The acetabulum was then registered with the robot. The robotic arm was then used to ream with a 45 reamer. The robot then was again used to place a 46 Trident cup in 40 of tilt and 23 of anteversion. A liner was then placed. The proximal femur was exposed and prepared with a cookie cutter followed by reaming and broaching to a size 2. We trialed with a standard and then a -4 head. After thorough irrigation a final Accolade 2 size 2 stem with 127 neck was placed. Leg length and offset were checked with the robot and were good, we lengthened her 4mm. A final -4 head was placed and the hip reduced. Betadine solution was used to irrigate throughout the case. It was followed by normal saline irrigation. Joint cocktail was injected throughout soft tissue. The capsulotomy was repaired with Ethibond. Short external rotators were also repaired with Ethibond. 1 g of vancomycin powder was placed into the wound. The muscle fascia was then repaired with #1 Vicryl. I then left my economist research assistant to close the subcutaneous tissue with 2-0 Vicryl followed by running 4-0 Monocryl skin followed by Dermabond and a sterile dressing. The patient with any placed back into supine position and taken to recovery room in the care of anesthesia.
[2018-04-19] MEDS ORDERED: DiphenhydrAMINE 25 MG CAPSULE PO PRN (10:38)
[2018-04-19] MEDS ORDERED: HYDROMORPHONE 2 MG TABLET PO PRN (10:38)
[2018-04-19] MEDS ORDERED: ONDANSETRON 4 MG/2 ML INJECTION IVP PRN (10:38)
[2018-04-19] MEDS ORDERED: NOZIN NASAL SWAB NAS ONE (10:38)
[2018-04-19] MEDS ORDERED: DiphenhydrAMINE 50 MG/ML INJECTION IVP PRN (10:38)
[2018-04-19] MEDS: NS 1,000 ML IV SCH (10:43)
[2018-04-19] MEDS ORDERED: FALL RISK - PHARMACY CONSULT MC ONE (10:51)
--- NOTE | 2018-04-19 11:19 | XRay Report ---
Indication: postoperative image PROCEDURE: XR pelvis w/ 1 view RT hip: Encounter: Initial Comparison: November 29, 2017 Findings: Postoperative changes of right total hip replacement are seen. There is expected postoperative subcutaneous gas. No evidence of hardware failure or acute fracture. No retained radiopaque surgical instruments or sponges seen. Impression: New right total hip prosthesis without evidence of immediate complication. .
[2018-04-19] MEDS: GABAPENTIN 100 MG CAPSULE PO SCH ×2 (14:44→22:02)
[2018-04-19] MEDS ORDERED: SALINE FLUSH 10ml SYRINGE IV PRN (15:43)
[2018-04-19] MEDS: ACETAMINOPHEN 325 MG TABLET PO SCH ×2 (17:15→22:01)
[2018-04-19] MEDS: LISINOPRIL 5 MG TABLET PO SCH (17:15)
[2018-04-19] MEDS: CEFAZOLIN 1 G in NS 100 ML IV SCH (17:16)
[2018-04-19] MEDS: HYDROMORPHONE 2 MG TABLET PO PRN ×2 (19:31→23:20)
[2018-04-19] MEDS: DOCUSATE SODIUM 100 MG CAPSULE PO SCH (21:30)
[2018-04-19] MEDS: ASPIRIN *EC* 81 MG TABLET PO SCH (22:01)
[2018-04-19] MEDS: SENNOSIDES 8.6 MG TABLET PO SCH (22:01)
[2018-04-19] MEDS: SIMVASTATIN 40 MG TABLET PO SCH (22:01)
[2018-04-19] MEDS: LEVOTHYROXINE 88 MCG TABLET PO SCH (22:01)
[2018-04-19] MEDS: NAPROXEN 220 MG TABLET PO SCH (22:02)
[2018-04-19] MEDS: ZOLPIDEM 5 MG TABLET PO SCH (22:03)
[2018-04-19] MEDS: MAGNESIUM OXIDE 400 MG TABLET PO SCH (22:03)
[2018-04-19] MEDS: OMEPRAZOLE 10 MG CAPSULE PO SCH (22:03)
[2018-04-20] MEDS: CEFAZOLIN 1 G in NS 100 ML IV SCH (00:56)
[2018-04-20] MEDS: NS 1,000 ML IV SCH ×2 (00:59→13:38)
[2018-04-20] MEDS: HYDROMORPHONE 2 MG TABLET PO PRN ×4 (04:12→23:19)
[2018-04-20] MEDS: NOZIN NASAL SWAB NAS SCH ×3 (05:37→22:01)
--- NOTE | 2018-04-20 08:29 | Orthopedic Consult Note ---
Orthopedic Consultation HPI - Consultation Info Consult Date: 04/20/18 Attending Physician: Mook Coy MD - History of Present Illness Belle is seen this morning in her room, post op day 1 of Right JUSTUS. She reports right buttocks and groin pain this morning, and having difficulty sitting/lying. She prefers to stand. She does have chronic back pain with multiple vertebral fusions. She is followed by Dr. Ann for pain management and has a Dilaudid pain pump. She does take Dilaudid 2mg PO q6hr prn at home as well, though most days she does not require. Pain control has improved with Dilaudid 2mg q4hr prn and scheduled Tylenol and Aleve. Patient denies any CP, SOA, nausea, dizziness or feeling lightheaded. Hgb decreased from 12 to 9.4 this morning. [facility] Patient Stated Medical History Hearing Loss Yes: hearing aide LEFT Macular Degeneration Yes Hypertension Yes Pneumonia Yes Sleep Apnea Yes: uses CPAP Diabetes Mellitus Type 2 Yes Gastroesophageal Reflux Yes Disease Hx Incontinence Yes: OAB Other Yes: IC Osteoarthritis Yes Other Musculoskeletal Yes: osteoporosis Anesthesia Reactions Yes: difficult intubation-use pediatric scope; requests spinal if poss Post Menopausal Yes Clinic Medical History (Last Reviewed 03/07/18 @ 11:59 by Mook Coy MD) Osteoporosis (Chronic Medical ~07/2017) Tolerating Evista without problems. Postablative hypothyroidism (Chronic Medical) Clinically and chemically euthyroid. Diabetes mellitus type 2, controlled (Chronic Medical) Controlled. Hypertension (Chronic Medical) Good control. Hyperlipidemia LDL goal <100 (Chronic Medical) On Zocor with good results. Obstructive sleep apnea (Chronic Medical) Cataracts, bilateral (Chronic Medical) Blindness (Chronic Medical) Macular degeneration (Chronic Medical) Thyroid disease (Chronic Medical) Skin cancer (Resolved Medical) Surgical History: Tonsillectomy, appendectomy, hysterectomy, lumbar x4, cervical x2, bunionectomy, cataracts, Family History: Family History (Last Reviewed 03/07/18 @ 11:59 by Mook Coy MD) Father No problems noted. - Social History Smoking status: Never smoker second hand exposure: No Substance use type: does not use Alcohol intake frequency: does not drink Household members: spouse Current occupational status: retired Does patient use chewing tobacco?: No Current residence: Apartment/Private Home Medications Home Medications Medication Instructions Recorded Confirmed Type Neurontin (gabapentin) 100 mg 100 mg PO TID 05/12/17 04/19/18 History capsule lisinopril 5 mg tablet 5 mg PO WS tab 05/12/17 04/19/18 History Prilosec (Omeprazole) 10 mg 20 mg PO HS cap 10/20/17 04/19/18 History capsule,delayed release aspirin 81 mg tablet,delayed 81 mg PO DAILY 10/20/17 04/19/18 History release potassium 99 mg tablet 99 mg PO WS 10/20/17 04/19/18 History raloxifene 60 mg tablet 60 mg PO DAILY #90 tab 10/20/17 04/19/18 Rx hydromorphone 2 mg tablet 2 mg PO Q6H PRN 01/18/18 04/19/18 History Calcium Carb/Vitamin D3/Vit K1 1 each PO TID 04/08/18 04/19/18 History [Citracal Soft Chew] Cinnamon Bark [Cinnamon] 2,000 mg PO WB 04/08/18 04/19/18 History Docusate Sodium [Stool Softener] 100 mg PO HS 04/08/18 04/19/18 History Lactobacillus Acidophilus 1 each PO WB 04/08/18 04/19/18 History [Acidophilus] Levothyroxine Tab [Synthroid] 88 mcg PO HS 04/08/18 04/19/18 History Magnesium Oxide [Magnesium] 1 tab PO HS 04/08/18 04/19/18 History Simvastatin [Zocor] 40 mg PO HS 04/08/18 04/19/18 History Vit C/E/Zn/Coppr/Lutein/Zeaxan 1 each PO BID 04/08/18 04/19/18 History [Preservision Areds 2 Softgel] Vitamin B Complex Vit C No.4 150 mg PO WS 04/08/18 04/19/18 History [Super B Complex] Zolpidem Tartrate 5 mg PO HS 04/08/18 04/19/18 History Allergies Allergy/AdvReac Type Severity Reaction Status Date / Time dexamethasone Allergy Severe TONGUE Verified 03/07/18 11:25 SWELLS, CAN'T BREATHE hydrocodone Allergy Severe HIVES/ Verified 03/07/18 11:25 SWELLING flavoxate Allergy Intermediate HIVES Verified 03/07/18 11:25 (FROM URISPAS) oxycodone Allergy Mild HIVES Verified 03/07/18 11:25 tramadol [From Ultram] Allergy Unknown Hives Verified 04/08/18 09:41 dexamethasone sod phosphate Allergy Severe TONGUE Uncoded 03/07/18 11:25 SWELLS, CAN'T BREATHE Methenamine Mandelate Allergy Intermediate HIVES Uncoded 03/07/18 11:25 oxycodone HCl Allergy Intermediate HIVES Uncoded 03/07/18 11:25 Shellfish Allergy Unknown Uncoded 03/07/18 11:25 mepivacaine HCl AdvReac Mild RAPID Uncoded 03/07/18 11:25 HEARTBEAT Exam - Constitutional Vital Signs: Temperature 97.0 F 04/20/18 00:16 Pulse Rate 61 04/20/18 04:00 Respiratory Rate 16 04/20/18 07:43 Blood Pressure 130/41 04/20/18 04:00 Pulse Oximetry 96 04/20/18 07:53 General: cooperative, healthy appearing, no acute distress, well developed, well groomed Nutritional Appearance: well nourished Orientation: alert - Labs Result Diagrams: 04/20/18 03:46 04/20/18 03:46 Abnormal lab results 04/20/18 04/20/18 Range/Units 03:46 03:46 Hgb 9.7 L D (12-16) GM/DL Hct 30.1 L D (36-46) % BUN 20.0 H (7-17) MG/DL Calcium 7.8 L D (8.4-10.2) MG/DL H & H 04/19/18 04/20/18 Range/Units 06:07 03:46 Hgb 12.6 9.7 L D (12-16) GM/DL Hct 37.8 30.1 L D (36-46) % Hospital Course Summary Disclaimer: The visit summary below is not to be considered part of the above Progress Note.
--- NOTE | 2018-04-20 08:34 | Orthopedic Progress Note ---
Date: Date: 04/20/18 Time: 830 Subjective/Severity of Illness: Belle is seen this morning in her room, post op day 1 of Right JUSTUS. She reports right buttocks and groin pain persisting this morning (she had this pre- op) and was expecting pain to be resolved. She reports difficulty sitting/lying due to pain and prefers to stand.She does have chronic back pain with multiple vertebral fusions. She is followed by Dr. Ann for pain management and has a Dilaudid pain pump. She does take Dilaudid 2mg PO q6hr prn at home as well, though most days she does not require. Pain control has improved with Dilaudid 2mg q4hr prn and scheduled Tylenol and Aleve. Patient denies any CP, SOA, nausea, dizziness or feeling lightheaded. Hgb decreased from 12 to 9.4 this morning, patient is asymptomatic. Orthopedic Exam Vital signs: Temperature 97.0 F 04/20/18 00:16 Pulse Rate 61 04/20/18 04:00 Respiratory Rate 16 04/20/18 07:43 Blood Pressure 130/41 04/20/18 04:00 Pulse Oximetry 96 04/20/18 07:53 - Constitutional General Appearance: Present: alert, orientated x3, cooperative, no acute distress - Respiratory Exam Present: CTA bilaterally, non-labored - Cardiovascular Exam Present: bradycardia, pedal pulses intact - Abdominal Exam Present: soft. Absent: tenderness, distended - Extremities Exam Present: pulses intact - Dressing Dressing: dry, intact, no drainage - Integumentary Exam Present: pink, warm, dry - Neurological Exam Present: intact to light touch, no deficits - Psychiatric Exam Present: alert, oriented - Labs Result Diagrams: 04/20/18 03:46 04/20/18 03:46 Abnormal lab results 04/20/18 04/20/18 Range/Units 03:46 03:46 Hgb 9.7 L D (12-16) GM/DL Hct 30.1 L D (36-46) % BUN 20.0 H (7-17) MG/DL Calcium 7.8 L D (8.4-10.2) MG/DL H & H 04/19/18 04/20/18 Range/Units 06:07 03:46 Hgb 12.6 9.7 L D (12-16) GM/DL Hct 37.8 30.1 L D (36-46) % Orthopedic Assessment and Plan (1) Primary osteoarthritis of right hip Status: Acute Assessment and Plan: Current anti-coagulation protocol for VTE prophylaxis. SCD's for added protection PT/OT services to improve independent function. Discharge Planning per Case Management. Acute on Chronic pain management, continue Dilaudid 2mg q4hr prn for pain, continue scheduled Tylenol and Aleve. Will keep patient another night for pain control. Discussed with patient would like to wean Dilaudid to q6hr before discharge prn. NIAL- patient has home CPAP, does not wear oxygen at home. Patient required 2LNC overnight. Will continue to monitor. - Anticoagulation Therapy Anticoagulation: ASA 81 mg PO BID x6 weeks - Additional Diagnoses Hypertension: stable, resume medications Diabetes: other (diet control, monitoring BG. Fasting BG 101. ) Anemia: no intervention required, patient was asymptomatic, labs monitored Other Diagnoses: Hypocalcemia- 7.8, patient asymptomatic. Patient has been SB 50s on telemetry, normal QT interval. Added magnesium lab (2.2). Home oral calcium replacement restarted this morning. Hospital Course Summary Disclaimer: The visit summary below is not to be considered part of the above Progress Note.
[2018-04-20] MEDS: ACETAMINOPHEN 325 MG TABLET PO SCH ×4 (09:05→22:01)
[2018-04-20] MEDS: ASPIRIN *EC* 81 MG TABLET PO SCH ×2 (09:05→22:02)
[2018-04-20] MEDS: GABAPENTIN 100 MG CAPSULE PO SCH ×3 (09:05→22:03)
[2018-04-20] MEDS: DOCUSATE SODIUM 100 MG CAPSULE PO SCH ×2 (09:05→22:03)
[2018-04-20] MEDS: NAPROXEN 220 MG TABLET PO SCH ×2 (09:05→22:04)
[2018-04-20] MEDS ORDERED: SENNOSIDES 8.6 MG TABLET PO PRN (09:22)
[2018-04-20] MEDS: RALOXIFENE 60 MG TABLET PO SCH (09:35)
[2018-04-20] MEDS: POLYETHYL GLYCOL 3350 17gm PACKET PO SCH (09:35)
[2018-04-20] MEDS: CALCIUM 600 + VIT D 400 TABLET PO SCH ×3 (09:51→22:10)
[2018-04-20] MEDS: VITAMIN B COMPLEX + C TABLET PO SCH (17:19)
[2018-04-20] MEDS: LISINOPRIL 5 MG TABLET PO SCH (17:51)
[2018-04-20] MEDS: SENNOSIDES 8.6 MG TABLET PO SCH (22:01)
[2018-04-20] MEDS: MAGNESIUM OXIDE 400 MG TABLET PO SCH (22:04)
[2018-04-20] MEDS: SIMVASTATIN 40 MG TABLET PO SCH (22:04)
[2018-04-20] MEDS: OMEPRAZOLE 10 MG CAPSULE PO SCH (22:04)
[2018-04-20] MEDS: ZOLPIDEM 5 MG TABLET PO SCH (23:19)
[2018-04-20] MEDS: LEVOTHYROXINE 88 MCG TABLET PO SCH (23:19)
[2018-04-21] MEDS: NS 1,000 ML IV SCH ×2 (02:01→14:30)
[2018-04-21] MEDS: HYDROMORPHONE 2 MG TABLET PO PRN ×2 (05:10→13:53)
[2018-04-21] MEDS ORDERED: SALINE FLUSH 10ml SYRINGE IV PRN (05:10)
[2018-04-21] MEDS: ASPIRIN *EC* 81 MG TABLET PO SCH ×2 (08:00→21:49)
[2018-04-21] MEDS: DOCUSATE SODIUM 100 MG CAPSULE PO SCH ×2 (08:00→21:49)
[2018-04-21] MEDS: CALCIUM 600 + VIT D 400 TABLET PO SCH ×3 (08:00→21:47)
[2018-04-21] MEDS: ACETAMINOPHEN 325 MG TABLET PO SCH ×4 (08:00→21:51)
[2018-04-21] MEDS: POLYETHYL GLYCOL 3350 17gm PACKET PO SCH (08:00)
[2018-04-21] MEDS: NAPROXEN 220 MG TABLET PO SCH ×2 (08:00→21:46)
[2018-04-21] MEDS: RALOXIFENE 60 MG TABLET PO SCH (08:00)
[2018-04-21] MEDS: GABAPENTIN 100 MG CAPSULE PO SCH ×3 (08:00→21:47)
--- NOTE | 2018-04-21 10:02 | Orthopedic Progress Note ---
Date: Date: 04/21/18 Time: 958 Subjective/Severity of Illness: Belle is doing better this AM. She is getting up to the BR with stand by assist. Denies CP, SOA, cough, lightheadedness or dizziness. She is hopeful to go home later today. Orthopedic Exam Vital signs: Temperature 97.0 F 04/20/18 00:16 Pulse Rate 61 04/20/18 04:00 Respiratory Rate 16 04/20/18 07:43 Blood Pressure 130/41 04/20/18 04:00 Pulse Oximetry 96 04/20/18 07:53 Narrative: 87 yo lady who is seen walking back from the bathroom in her room. BPs have improved overnight and diastolics in the 50's. - Constitutional General Appearance: Present: alert, cooperative, no acute distress - Respiratory Exam Present: non-labored - Cardiovascular Exam Present: bradycardia (HR 55-57 and stable. Well tolerated.), pedal pulses intact - Extremities Exam Present: pulses intact - Dressing Dressing: dry, intact, no drainage - Integumentary Exam Present: pink, warm, dry - Neurological Exam Present: intact to light touch, no deficits - Psychiatric Exam Present: alert, normal affect - Labs Result Diagrams: 04/21/18 03:57 04/21/18 03:57 Abnormal lab results 04/21/18 04/21/18 Range/Units 03:57 03:57 Hgb 9.3 L (12-16) GM/DL Hct 28.4 L (36-46) % Sodium 135 L (136-146) MEQ/L Carbon Dioxide 31 H (22-30) MEQ/L BUN 18.0 H (7-17) MG/DL Calcium 8.0 L (8.4-10.2) MG/DL H & H 04/19/18 04/20/18 04/21/18 Range/Units 06:07 03:46 03:57 Hgb 12.6 9.7 L D 9.3 L (12-16) GM/DL Hct 37.8 30.1 L D 28.4 L (36-46) % Orthopedic Assessment and Plan (1) Primary osteoarthritis of right hip Status: Acute Assessment and Plan: Aspirin protocol for VTE prophylaxis. SCD's for added protection PT/OT services to improve independent function. Discharge Planning per Case Management. Acute on Chronic pain management, continue Dilaudid 2mg q4hr prn for pain, continue scheduled Tylenol and Aleve. Pt encouraged to minimize Dilaudid as it may be contributing to hypotension. NILA- patient has home CPAP, does not wear oxygen at home. She has normal sats on RA this AM. - Additional Diagnoses Hypertension: other (BPs were 113/44 last evening and Lisinopril held. BPs improved this AM at 124/54. Will have her f/u with her PCP after discharge to consider restarting this.) Diabetes: other (diet control, monitoring BG. Fasting BG 108 today. Good control. ) Anemia: no intervention required, patient was asymptomatic, labs monitored Hospital Course Summary Disclaimer: The visit summary below is not to be considered part of the above Progress Note.
--- NOTE | 2018-04-21 13:53 | Consult Note ---
Consult Information - Data of Consult Consult date: 04/21/18 Requesting Physician: Mook Coy MD Primary Care Provider: Augustina Odell MD - Consult Narrative Reason for consult: bradycardia, CKD stage III History of present illness: Belle Patel is a very pleasant 87-year-old female patient of Dr. Odell. She also follows with Dr. Cheney for CAD, LVSD, hypertension and a history of paroxysmal atrial tachycardia and Dr. Lemons for pain management. She underwent an elective right hip replacement on 04/19/[address] Coy and has been doing very well post-operatively. On the evening of 04/20/18, her blood pressure was felt to be borderline low at 113/44 so her home lisinopril was held that evening. This morning, her blood pressure was improved at 124/54 prior to morning medications and she remained asymptomatic. Unfortunately, upon distribution of morning medications, a medication error occurred and she accidently received atenolol 100mg orally, which is not one of her home medications and was not an ordered medication. Nursing reports that she received the medication around 0800 this morning but the error was not identified until around 1130am when nursing was back logging the nursing notes and noticed that the atenolol was not on her MAR. At that time, Dr. Coy was notified of the incident and the hospitalist service was consulted for medical management. She denies any current symptoms including no chest pain, shortness of breath, dizziness, lightheadedness, syncope, weakness, nausea, vomiting or diaphoresis. Her vital signs have remained stable and close to her baseline as she was noted to have bradycardia on admission with a heart rate ranging between 50-70. She has been able to participate in therapies without issues. Since surgery, her hemoglobin has trended down from 12.6 to 9.3 today. New hyponatremia today with sodium at 135. She has chronic kidney disease, stage III with a creatine clearance of 38. Based on her chronically impaired renal function, the half-life of atenolol is ~15 hours with recommendations of close monitoring for at least 24 hours given her bradycardia. Past Medical History Medical History: Medical History (Last Updated 04/21/18 @ 13:59 by PREMA Arroyo) Atrial tachycardia, paroxysmal (Chronic) history of PAT - follows with Dr. Cheney. Left ventricular systolic dysfunction (Acute) Hyperlipidemia (Acute) CAD (coronary artery disease) (Acute) Skin cancer (Resolved) Macular degeneration (Chronic) Thyroid disease (Chronic) Osteoporosis (Chronic) Onset Date: ~07/2017 Tolerating Evista without problems. Postablative hypothyroidism (Chronic) Clinically and chemically euthyroid. Diabetes mellitus type 2, controlled (Chronic) Controlled. Hypertension (Chronic) Good control. Hyperlipidemia LDL goal <100 (Chronic) On Zocor with good results. Obstructive sleep apnea (Chronic) home CPAP Cataracts, bilateral (Chronic) Blindness (Chronic) Surgical History: Tonsillectomy - 1943. Appendectomy - 1950. Hysterectomy - 1961. Cholecystectomy - 1964. Lumbar fusion L5-S1 - 1992. Cervical fusion of C4-C6 - 1992; C3-C6 - 2003. Bunionectomy - 2004. Heart cath (EF 65% with LAD 30% proximal) - 2010. Spinal cord stimulator - 2008. Dilaudid Interthocak pump - 2008. Family History: Family History Patient is adopted. Family History: As Above - Social History Smoking status: Former smoker (remote history) Substance use type: does not use Alcohol intake frequency: does not drink Housing: house Household members: spouse service: No Current occupational status: retired Does patient use chewing tobacco?: No Current residence: Apartment/Private Home Social history: PCP - Dr. Odell. Ortho - Dr. Coy. Cardio - Dr. Cheney. Pain - Dr. Ann. Review of Systems All systems PM: 10-point ROS was reviewed, no additional remarkable complaints except - Constitutional Constitutional: Absent: chills, fatigue, fever(s), weakness - EENMT Eyes: Absent: change in vision, photophobia Ears: Absent: ear pain Balance: Absent: falling to one side Nose: Absent: nosebleeds Mouth/Throat: Absent: pain, changes in swallowing, dry mouth - Cardiovascular Cardiovascular: Absent: chest pain, palpitations, syncope, dyspnea on exertion, orthopnea, edema Rhythm: Absent: regular rhythm Vascular: Absent: pallor of an extermity, pedal edema, unilateral swelling - Respiratory Respiratory: Absent: cough, dyspnea, hemoptysis, dyspnea on exertion, wheezing - Gastrointestinal Gastrointestinal: Present: constipation. Absent: abdominal pain, diarrhea, melena, nausea, vomiting - Genitourinary Genitourinary: Absent: dysuria, flank pain, hematuria Menstruation: post hysterectomy - Musculoskeletal Musculoskeletal: Present: back pain (chronic), limited range of motion (right leg secondary to recent surgery). Absent: deformity - Integumentary/Breasts Integumentary: Absent: rash - Neurological Neurological: Present: weakness. Absent: confusion, dizziness, focal weakness - Psychiatric Psychiatric: Absent: anxiety, depression - Endocrine Endocrine: Absent: flushing, palpitations - Hematologic/Lymphatic Hematologic/Lymphatic: Absent: easy bruising - Allergic/Immunologic Allergic/Immunologic: Absent: seasonal rhinorrhea Medications Home Medications Medication Instructions Recorded Confirmed Type Neurontin (gabapentin) 100 mg 100 mg PO TID 05/12/17 04/19/18 History capsule lisinopril 5 mg tablet 5 mg PO WS tab 05/12/17 04/19/18 History Prilosec (Omeprazole) 10 mg 20 mg PO HS cap 10/20/17 04/19/18 History capsule,delayed release aspirin 81 mg tablet,delayed 81 mg PO DAILY 10/20/17 04/19/18 History release potassium 99 mg tablet 99 mg PO WS 10/20/17 04/19/18 History raloxifene 60 mg tablet 60 mg PO DAILY #90 tab 10/20/17 04/19/18 Rx hydromorphone 2 mg tablet 2 mg PO Q6H PRN 01/18/18 04/19/18 History Calcium Carb/Vitamin D3/Vit K1 1 each PO TID 04/08/18 04/19/18 History [Citracal Soft Chew] Cinnamon Bark [Cinnamon] 2,000 mg PO WB 04/08/18 04/19/18 History Docusate Sodium [Stool Softener] 100 mg PO HS 04/08/18 04/19/18 History Lactobacillus Acidophilus 1 each PO WB 04/08/18 04/19/18 History [Acidophilus] Levothyroxine Tab [Synthroid] 88 mcg PO HS 04/08/18 04/19/18 History Magnesium Oxide [Magnesium] 1 tab PO HS 04/08/18 04/19/18 History Simvastatin [Zocor] 40 mg PO HS 04/08/18 04/19/18 History Vit C/E/Zn/Coppr/Lutein/Zeaxan 1 each PO BID 04/08/18 04/19/18 History [Preservision Areds 2 Softgel] Vitamin B Complex Vit C No.4 150 mg PO WS 04/08/18 04/19/18 History [Super B Complex] Zolpidem Tartrate 5 mg PO HS 04/08/18 04/19/18 History Allergies Allergy/AdvReac Type Severity Reaction Status Date / Time dexamethasone Allergy Severe TONGUE Verified 03/07/18 11:25 SWELLS, CAN'T BREATHE hydrocodone Allergy Severe HIVES/ Verified 03/07/18 11:25 SWELLING flavoxate Allergy Intermediate HIVES Verified 03/07/18 11:25 (FROM URISPAS) oxycodone Allergy Mild HIVES Verified 03/07/18 11:25 acetaminophen Allergy Unknown Unverified 04/21/18 12:28 mepivacaine Allergy Unknown Unverified 04/21/18 12:28 methenamine Allergy Unknown Unverified 04/21/18 12:28 shellfish derived Allergy Unknown Unverified 04/21/18 12:28 tramadol [From Ultram] Allergy Unknown Hives Verified 04/08/18 09:41 dexamethasone sod phosphate Allergy Severe TONGUE Uncoded 03/07/18 11:25 SWELLS, CAN'T BREATHE Methenamine Mandelate Allergy Intermediate HIVES Uncoded 03/07/18 11:25 oxycodone HCl Allergy Intermediate HIVES Uncoded 03/07/18 11:25 Shellfish Allergy Unknown Uncoded 03/07/18 11:25 mepivacaine HCl AdvReac Mild RAPID Uncoded 03/07/18 11:25 HEARTBEAT Exam Vital Signs: Temperature 97.8 F 04/21/18 10:48 Pulse Rate 54 L 04/21/18 12:04 Respiratory Rate 14 04/21/18 10:48 Blood Pressure 109/49 04/21/18 11:50 Pulse Oximetry 94 04/21/18 11:50 Telemetry Rhythm: Sinus Bradycardia Height/Weight/BMI: Height 4 ft 10 in Weight 148 lb 12.992 oz Body Mass Index 29.5 Comments: Patient seen while walking in the [place] with her walker and PT. Denies any current complaints and is disappointed about not being able to go home today but understands. - Constitutional Present: no acute distress, well nourished, well developed, obese, cooperative - Routine HEENT Exam Head: Present: normocephalic, atraumatic Eye: Present: PERRL. Absent: conjunctival icterus ENT: Present: mucous membranes moist, oropharynx clear - Routine Neck Exam Present: supple, full ROM, trachea midline - Routine Chest/Breast/Axilla Exam Chest wall: Absent: pacemaker - Routine Respiratory Exam Present: CTA bilaterally. Absent: respiratory distress, wheezes - Routine Cardiovascular Exam Present: RRR, S1, S2 - Routine Abdominal Exam Present: soft, normoactive bowel sounds, non tender - Routine Extremities Exam Present: no edema, pulses intact Comments: ambulating easily with her walker and PT. - Routine Back/Spine/Pelvis Exam Back/Spine: Present: full ROM - Routine Skin Exam Present: dry, warm Comments: Afebrile. - Routine Neurological Exam Present: alert, oriented X3, CN II-XII intact, moving all extremities, hearing grossly intact, normal speech - Routine Psychiatric Exam Present: normal affect, cooperative, good insight, good judgment Results - Labs CBC & Chem 7: 04/21/18 03:57 04/21/18 03:57 Labs: Anemia - 12.6-->9.7-->9.3. Hyponatremia - Na+ 135. Assessment and Plan (1) Status post total hip replacement, right Current visit: Yes Status: Acute (2) Bradycardia Current visit: Yes Status: Acute Assessment and Plan: Assessment: S/P elective right hip replacement - 04/19/18, Dr. Coy. Acute blood loss anemia, asymptomatic. Hyponatremia, not POA. Bradycardia, asymptomatic. Hypertension. Hyperlipidemia. Left ventricular systolic dysfunction. History of atrial tachycardia, suspected to have been a-fib. Osteoporosis. Postablative hypothyroidism. Diabetes mellitus, type II. NILA, uses home CPAP. Macular degeneration. Stage III chronic kidney disease. Plan: POD #2. Pain fairly well controlled with current regimen per ortho. Patient bradycardic since admission ranging 50-70 bpm. Asymptomatic. Medication error resulting in patient receiving atenolol 100mg orally x 1 dose in AM today. Vital signs have remained stable. Will continue to monitor closely on telemetry. Discussed extensively with pharmacy. Given patient's chronically impaired renal function, half-life of atenolol is ~ 15 hours and recommend close monitoring for 24 hours. Will start NS 100cc/hr for gentle hydration given mild hyponatremia and to encourage excretion of atenolol. Continue to encourage therapies and bowel motivation. Plan on discharge in AM if patient remains asymptomatic and telemetry remains unchanged. Discussed treatment plan and recommendations with ortho (Aubrey) as well as with Dr. Quinn. Recheck labs in AM to monitor blood counts, electrolytes and renal function. I personally examined and assessed the patient. Agree with the above assessment and plan, with the addition of the following: Pt feeling well on my eval, desiring to go home. No lightheadedness, palpitations, N/V/diaphoresis. Regular rhythm, bradycardic. Lungs clear. No LE edema. SBP ~110. Hold lisinopril for now, monitor bradycardia given the dose of atenolol. Anticipate dismissal to home tomorrow. Lucien Quinn MD. DVT Prophylaxis: SCD's GI Prophylaxis: Omeprazole Resuscitation Status: Full Code - Time spent with patient Time with patient PN: 70 minutes - Physician Narrative Physician: other (Dr. Quinn) Narrative: Date: 04/21/18 Time: 1338 Hospital Course Summary Disclaimer: The visit summary below is not to be considered part of the above Progress Note. Hospital Course: Plan: POD #2. Pain fairly well controlled with current regimen per ortho. Patient bradycardic since admission ranging 50-70 bpm. Asymptomatic. Medication error resulting in patient receiving atenolol 100mg orally x 1 dose in AM today. Vital signs have remained stable. Will continue to monitor closely on telemetry. Discussed extensively with pharmacy. Given patient's chronically impaired renal function, half-life of atenolol is ~ 15 hours and recommend close monitoring for 24 hours. Will start NS 100cc/hr for gentle hydration given mild hyponatremia and to encourage excretion of atenolol. Continue to encourage therapies and bowel motivation. Plan on discharge in AM if patient remains asymptomatic and telemetry remains unchanged. Discussed treatment plan and recommendations with ortho (Aubrey) as well as with Dr. Quinn. Recheck labs in AM to monitor blood counts, electrolytes and renal function.
[2018-04-21] MEDS: NOZIN NASAL SWAB NAS SCH ×3 (15:45→21:49)
[2018-04-21] MEDS: LISINOPRIL 5 MG TABLET PO SCH (17:29)
[2018-04-21] MEDS: VITAMIN B COMPLEX + C TABLET PO SCH (17:49)
[2018-04-21] MEDS ORDERED: BISACODYL 10 MG SUPPOSITORY RECTALLY SCH (20:00)
[2018-04-21] MEDS: MAGNESIUM OXIDE 400 MG TABLET PO SCH (21:47)
[2018-04-21] MEDS: LEVOTHYROXINE 88 MCG TABLET PO SCH (21:47)
[2018-04-21] MEDS: SENNOSIDES 8.6 MG TABLET PO SCH (21:49)
[2018-04-21] MEDS: ZOLPIDEM 5 MG TABLET PO SCH (21:50)
[2018-04-21] MEDS: SIMVASTATIN 40 MG TABLET PO SCH (21:50)
[2018-04-21] MEDS: OMEPRAZOLE 10 MG CAPSULE PO SCH (21:50)
[2018-04-22] MEDS: NS 1,000 ML IV SCH ×2 (00:52→12:39)
[2018-04-22] MEDS: NOZIN NASAL SWAB NAS SCH ×2 (06:41→14:24)
[2018-04-22] MEDS: HYDROMORPHONE 2 MG TABLET PO PRN (07:26)
--- NOTE | 2018-04-22 08:47 | Orthopedic Progress Note ---
Date: Date: 04/22/18 Time: 841 Subjective/Severity of Illness: Belle is seen in CCU this morning. Overnight patient had bradycardia in the 40s with a 2 sec pause on telemetry. Telemedicine hospitalist was notified and she was transferred to CCU for close monitoring. No further pauses noted on telemetry since transfer. Patient also complains about feeling short of breathe even with her home CPAP on overnight. She has been performing her IS but only able to pull 250-500ml. She denies any symptoms of dizziness, chest pain, nausea , reflux, abdominal pain. She did have a BMx2 yesterday. Her right hip pain has been well controlled with PO Dilaudid, she is requiring q4-6hr prn. Orthopedic Exam Vital signs: Temperature 97.0 F 04/20/18 00:16 Pulse Rate 61 04/20/18 04:00 Respiratory Rate 16 04/20/18 07:43 Blood Pressure 130/41 04/20/18 04:00 Pulse Oximetry 96 04/20/18 07:53 - Constitutional General Appearance: Present: alert, orientated x3, cooperative, no acute distress - Respiratory Exam Present: non-labored Comments: Diminished bilateral upper lobes. Otherwise CTA. Tenderness to palpation 4-6th ICS. - Cardiovascular Exam Present: bradycardia (HR 55-57 and stable. Well tolerated.), pedal pulses intact - Abdominal Exam Present: soft. Absent: tenderness, distended - Extremities Exam Present: no edema, pulses intact - Dressing Dressing: dry, intact, no drainage - Integumentary Exam Present: pink, warm, dry - Neurological Exam Present: intact to light touch, no deficits - Psychiatric Exam Present: alert, normal affect - Labs Result Diagrams: 04/22/18 04:27 04/22/18 04:27 Abnormal lab results 04/22/18 04/22/18 Range/Units 04:27 04:27 RBC 3.20 L (4.00-5.20) M/MM3 Hgb 9.8 L (12-16) GM/DL Hct 30.2 L (36-46) % Sodium 134 L (136-146) MEQ/L BUN 20.0 H (7-17) MG/DL Calcium 7.4 L (8.4-10.2) MG/DL H & H 04/19/18 04/20/18 04/21/18 Range/Units 06:07 03:46 03:57 Hgb 12.6 9.7 L D 9.3 L (12-16) GM/DL Hct 37.8 30.1 L D 28.4 L (36-46) % 04/22/18 Range/Units 04:27 Hgb 9.8 L (12-16) GM/DL Hct 30.2 L (36-46) % Orthopedic Assessment and Plan (1) Primary osteoarthritis of right hip Status: Acute Assessment and Plan: Aspirin protocol for VTE prophylaxis. SCD's for added protection PT/OT services to improve independent function. Discharge Planning per Case Management. Acute on Chronic pain management, well controlled. Will decrease Dilaudid 2mg to q6hr prn, continue scheduled Tylenol. NILA- patient has home CPAP, does not wear oxygen at home. She has normal sats on RA this AM. Will order Chest xray this morning, concerned for possible developing pneumonia vs atelectasis. Encouraged IS q1hr while awake. Hospitalist managing medically. - Additional Diagnoses Hypertension: other (BPs were 113/44 last evening and Lisinopril held. BPs improved this AM at 124/54. Will have her f/u with her PCP after discharge to consider restarting this.) Diabetes: other (diet control, monitoring BG. Fasting BG 108 today. Good control. ) Anemia: no intervention required, patient was asymptomatic, labs monitored Hospital Course Summary Disclaimer: The visit summary below is not to be considered part of the above Progress Note. Hospital Course: Plan: POD #2. Pain fairly well controlled with current regimen per ortho. Patient bradycardic since admission ranging 50-70 bpm. Asymptomatic. Medication error resulting in patient receiving atenolol 100mg orally x 1 dose in AM today. Vital signs have remained stable. Will continue to monitor closely on telemetry. Discussed extensively with pharmacy. Given patient's chronically impaired renal function, half-life of atenolol is ~ 15 hours and recommend close monitoring for 24 hours. Will start NS 100cc/hr for gentle hydration given mild hyponatremia and to encourage excretion of atenolol. Continue to encourage therapies and bowel motivation. Plan on discharge in AM if patient remains asymptomatic and telemetry remains unchanged. Discussed treatment plan and recommendations with ortho (Zackary and Jannie) as well as with Dr. Quinn. Recheck labs in AM to monitor blood counts, electrolytes and renal function.
[2018-04-22] MEDS: ACETAMINOPHEN 325 MG TABLET PO SCH ×2 (09:23→14:24)
[2018-04-22] MEDS: CALCIUM 600 + VIT D 400 TABLET PO SCH ×2 (09:24→14:24)
[2018-04-22] MEDS: DOCUSATE SODIUM 100 MG CAPSULE PO SCH (09:24)
[2018-04-22] MEDS: RALOXIFENE 60 MG TABLET PO SCH (09:24)
[2018-04-22] MEDS: GABAPENTIN 100 MG CAPSULE PO SCH ×2 (09:24→14:28)
[2018-04-22] MEDS: POLYETHYL GLYCOL 3350 17gm PACKET PO SCH (09:24)
[2018-04-22] MEDS: ASPIRIN *EC* 81 MG TABLET PO SCH (09:24)
--- NOTE | 2018-04-22 09:55 | Progress Note ---
- Date 04/22/18 Subjective: Pt developed some chest pressure this am on the left side of her chest, did not radiate to shoulder or jaw, and no associated diaphoresis. Had a heart cath approx 5 years ago showing 30% stenosis, and has had yearly stress tests since per her report, all of which have been normal. EKG this am showed bradycardia, but no ST changes consistent with acute ischemia. Initial trop negative. Objective Vital signs: Temperature 98 F 04/22/18 08:00 Pulse Rate 55 L 04/22/18 09:05 Respiratory Rate 36 H 04/22/18 08:45 Blood Pressure 149/67 H 04/22/18 08:00 Pulse Oximetry 100 04/22/18 09:43 Height/Weight/BMI: Height 4 ft 10 in Weight 69.4 kg Body Mass Index 29.5 - Constitutional Present: no acute distress, well developed - Routine HEENT Exam Head: Present: normocephalic, atraumatic Eye: Present: EOMI, PERRL ENT: Present: mucous membranes moist, oropharynx clear, external ear normal - Routine Respiratory Exam Present: CTA bilaterally. Absent: wheezes, crackles - Routine Cardiovascular Exam Present: murmur, bradycardia (Regular. ). Absent: gallop, rubs - Routine Abdominal Exam Present: soft, normoactive bowel sounds, non distended, non tender. Absent: organomegaly - Routine Extremities Exam Present: full ROM, normal capillary refill. Absent: cyanosis, edema - Routine Skin Exam Present: intact, dry. Absent: jaundice, rash - Routine Neurological Exam Present: alert, oriented X3, CN II-XII intact, moving all extremities (5/5 strength). Absent: altered mental status - Routine Psychiatric Exam Present: normal affect. Absent: depressed, anxious Results - Labs CBC & Chem 7: 04/22/18 04:27 04/22/18 04:27 Assessment and Plan (1) Status post total hip replacement, right Current visit: Yes Status: Acute (2) Bradycardia Current visit: Yes Status: Acute Assessment and Plan: Assessment: S/P elective right hip replacement - 04/19/18, Dr. Coy. Acute blood loss anemia, asymptomatic. Hyponatremia, not POA. Bradycardia, asymptomatic. Hypertension. Hyperlipidemia. Left ventricular systolic dysfunction. History of atrial tachycardia, suspected to have been a-fib. Osteoporosis. Postablative hypothyroidism. Diabetes mellitus, type II. NILA, uses home CPAP. Macular degeneration. Stage III chronic kidney disease. Plan: POD #3. Pain well controlled. 24hrs since admin of atenolol. Sinus pauses overnight of ~2.8 seconds around 2- 3am have resolved, now HR ~50. Monitor several more hours, and if HR consistently >50, OK to discharge later today. Mag, K OK. Regarding chest pain, initial EKG with bradycardia and no acute ischemic changes. Initial troponin negative. Trending trops x 3. Given relative hypotension, recommend holding LESLEE indefinitely unless SBP consistently >130. DVT Prophylaxis: SCD's GI Prophylaxis: Omeprazole Resuscitation Status: Full Code - Physician Narrative Narrative: Date: 04/22/18 Time: 0951 Hospital Course Summary Disclaimer: The visit summary below is not to be considered part of the above Progress Note. Hospital Course: 04/21 POD #2. Pain fairly well controlled with current regimen per ortho. Patient bradycardic since admission ranging 50-70 bpm. Asymptomatic. Medication error resulting in patient receiving atenolol 100mg orally x 1 dose in AM today. Vital signs have remained stable. Will continue to monitor closely on telemetry. Discussed extensively with pharmacy. Given patient's chronically impaired renal function, half-life of atenolol is ~ 15 hours and recommend close monitoring for 24 hours. Will start NS 100cc/hr for gentle hydration given mild hyponatremia and to encourage excretion of atenolol. Continue to encourage therapies and bowel motivation. Plan on discharge in AM if patient remains asymptomatic and telemetry remains unchanged. Discussed treatment plan and recommendations with ortho (Zackary and Jannie) as well as with Dr. Quinn. Recheck labs in AM to monitor blood counts, electrolytes and renal function.
--- NOTE | 2018-04-22 11:20 | XRay Report ---
Indication: SOA PROCEDURE: XR chest 1V: Encounter: Initial Comparison: April 11, 2018 Findings: Persistent small linear density along the minor fissure on the right. Interstitial prominence noted in both lungs. Small pleural effusions are new. No pneumothorax. Cardiac silhouette and mediastinal contours are stable. Pulmonary vascularity shows cephalization. Impression: New mild pulmonary edema. .
[2018-04-22 13:37] VITALS: TEMP 97.7
--- NOTE | 2018-04-22 15:21 | Discharge Summary ---
Letter to PCP Cover Letter: Belle Patel underwent an elective total joint arthroplasty by Dr. Coy. Aspirin therapy was initiated for DVT prophylaxis. Aspirin 81mg should be given BID for six weeks postoperatively. Details for their hospitalization can be found in the discharge summary attached. The patient is scheduled to see you one week after surgery for a post-operative check. I hope you find the discharge summary informative and helpful as you resume care of your patient after their surgery. If our office can be of any assistance, please feel free to contact us any time. Orthopedic Discharge Info Date of admission: 04/19/18 05:37 Anticipated date of discharge: 04/22/18 Primary care physician: Augustina Odell MD Attending Physician: Mook Coy MD Consults: 04/19/18 05:43 Consult to Anesthesiology [CONS] Routine Reason For Exam: Preoperative Assessment 04/19/18 10:38 Case Management Consult [CONS] Routine Reason For Exam: Discharge Planning DME-Walker [CONS] Routine Height: 4 ft 10 in Weight: 64.1 kg Total Joint Outpatient Therapy [CONS] Routine Comment: Remove dressing in 2 weeks 04/20/18 IRU Screening [Inpatient Rehab Screening] [CONS] Routine 04/21/18 12:19 Physician Consult [CONS] Routine Consulting Provider: Gal Quinn Reason For Exam: LOW HEART RATE Ordering Provider has Notified [employer] Assistant: Yes - Discharge Diagnosis (1) Primary osteoarthritis of right hip Status: Acute - Laboratory Result Diagrams: 04/22/18 04:27 04/22/18 04:27 Laboratory: Abnormal lab results 04/22/18 04/22/18 Range/Units 04:27 04:27 RBC 3.20 L (4.00-5.20) M/MM3 Hgb 9.8 L (12-16) GM/DL Hct 30.2 L (36-46) % Sodium 134 L (136-146) MEQ/L BUN 20.0 H (7-17) MG/DL Calcium 7.4 L (8.4-10.2) MG/DL H & H 04/19/18 04/20/18 04/21/18 Range/Units 06:07 03:46 03:57 Hgb 12.6 9.7 L D 9.3 L (12-16) GM/DL Hct 37.8 30.1 L D 28.4 L (36-46) % 04/22/18 Range/Units 04:27 Hgb 9.8 L (12-16) GM/DL Hct 30.2 L (36-46) % Orthopedic Discharge HPI - HPI Comments This patient was admitted for elective surgical tx of end stage degenerative joint disease that failed to respond to conservative treatment. Further details of this is found in the admission H&P. Orthopedic Hospital Course Hospital course: 04/22/18 15:14 After appropriate preoperative clearance and signing of operative consent, the patient was given IV antibiotics, according to orthopedic protocol. The patient was taken to the operating room and underwent elective joint arthroplasty. Following surgery, antibiotics were discontinued less than 24 hours according to joint protocol. Appropriate anticoagulants were initiated and SCDs added for DVT prevention. The dressing was clean, dry, and intact. Pain control was obtained via multimodal approach. Bowel motivation addressed with scheduled and PRN medications. Early mobilization was initiated through PT services. Discharge arrangements made by a collaborative effort between the patient and Case Management. Patient is followed by Dr. Ann for chronic pain, her pain pump was continued throughout the hospital stay and oral Dilaudid 2mg was started prn for pain control per his recommendations. After reviewing medication allergies with patient, she was found to tolerate Tylenol. Tylenol and Aleve were added scheduled for pain control as well. Post-op day 1 patient continued to struggle with PT due to pain and was decided to monitor another night for pain control. Dilaudid initially was q4hr prn, patient was encouraged to decrease frequency and was able to wean to q6hr prn. Post-op day 2 patient was more progressive with PT and pain was controlled well with current regimen and discharge was anticipated with home health. Unfortunately, a medication error was discovered in which the patient received Atenolol 100mg PO, this was not an ordered medication or a home medication of the patient. Hospitalist services were consulted at that time. Patient was kept an additional night for monitoring on telemetry. Overnight patient's HR decreased into the 40s with 2.8sec pause. Tele hospitalist were notified and patient was transferred to the CCU. Patient reported some chest discomfort later than morning. Serial troponins were obtained and all of which negative. Patient remained in SB in the 50s with no ST elevation or further pauses. Chest xray obtained with mild pulmonary edema, though clinically patient was not euvolemic and asymptomatic. Remained on RA with home CPAP for NILA. That afternoon patient was followed up by hospitalist, whom felt comfortable with discharge at this time. Recommended follow up with PCP the following week with repeat chest xray. Lisinopril was held due to relative hypotension 100-110s until BP remained >130s, instructed patient to restart Lisinopril tomorrow (04/23/18). BG was well controlled, home medications restarted. Patient to follow up with PCP as scheduled this week. Follow-up is scheduled in 2-3 weeks. Discharge instructions given by orthopedic providers and nursing staff at discharge. Discharge condition was good. 04/22/18 15:22 04/22/18 15:24 Care extended to > 2 midnight stays?: Yes Discharge Plan - Med Rec/Dispo Referrals/Follow Up: Augustina Odell MD [Primary Care Provider] - 04/26/18 2:15 pm Jannie Stevens APRN [Advanced Practice Nurse] - 05/11/18 10:00 am [email or web address] Instructions: [facility] Postop Instructions Prescriptions: New Aspirin *EC* [Ecotrin] 81 mg PO BID tab Docusate Sodium [Colace] 100 mg PO BID cap PEG 3350 17gm PACKET [Miralax] 17 gm PO DAILY packet Acetaminophen [Tylenol] 650 mg PO QID tab Continue Calcium Carb/Vitamin D3/Vit K1 [Citracal Soft Chew] 1 each PO TID Cinnamon Bark [Cinnamon] 2,000 mg PO WB Docusate Sodium [Stool Softener] 100 mg PO HS Lactobacillus Acidophilus [Acidophilus] 1 each PO WB Levothyroxine Tab [Synthroid] 88 mcg PO HS Magnesium Oxide [Magnesium] 1 tab PO HS Simvastatin [Zocor] 40 mg PO HS Vit C/E/Zn/Coppr/Lutein/Zeaxan [Preservision Areds 2 Softgel] 1 each PO BID Vitamin B Complex Vit C No.4 [Super B Complex] 150 mg PO WS Hydromorphone HCl [Dilaudid] 2 mg PO Q6H PRN #50 tab PRN Reason: Pain Zolpidem Tartrate 5 mg PO HS lisinopril 5 mg tablet 5 mg PO WS tab Neurontin (gabapentin) 100 mg capsule 100 mg PO TID Prilosec (Omeprazole) 10 mg capsule,delayed release 20 mg PO HS cap aspirin 81 mg tablet,delayed release 81 mg PO DAILY potassium 99 mg tablet 99 mg PO WS raloxifene 60 mg tablet 60 mg PO DAILY #90 tab - Disposition 01 Discharged Home, Self-Care - Dismissal Complete Discharge Instructions are:: Complete
[2018-04-22 17:37] VITALS: BP 140/64; PULSE 53; RESP 31; O2SAT 97
== END 2018-04-22 17:20 | disposition home health service (06) | DRG 470 ==
LOC: NMC.PERIOP 05:37 → SRG 10:31 → CCU 04-22 03:25
PROVIDERS: ADMIT Orthopaedic Surgery; ATTEND Orthopaedic Surgery